=== PATIENT | female | born 1985 | race Caucasian/White ===

== ENCOUNTER 2023-01-24 12:11 | Inpatient (IN) | payer OTHER ==
[2023-01-24] MEDS ORDERED: SODIUM CHLORIDE 0.9% 500 ML 500 ML IV STA (12:58)
[2023-01-24] MEDS ORDERED: FAMOTIDINE 20 MG/2 ML VIAL IV STA (12:58)
--- NOTE | 2023-01-24 13:04 | ED ---
Abdominal Pain HPI - General Chief Complaint: Abdominal Pain Stated Complaint: Abd Pain Time Seen by Provider: 01/24/23 12:41 Source: patient, RN notes reviewed, old records reviewed Mode of arrival: ambulatory - History of Present Illness Initial Comments: This is a pleasant nontoxic appearing 37-year-old female that presents to the emergency room with complaints of epigastric abdominal pain and right upper quadrant since 9:30 this morning. Patient states that pain started on Thursday was lower abdominal felt gassy. Resolved on Thursday. Today she states that pain was epigastric in nature feeling like a squeezing vice-like pain. Worse after she tried to have coffee. Developed chills with nausea. Patient states that she is concerned for acute coronary event stating that her dad had a heart attack age 54. No previous abdominal surgeries. Denies any chance of pr egnancy. No dysuria MD Complaint: abdominal pain -: days(s) (5) Location: RUQ Severity scale (1-10): 3 Quality: fullness, other (squeezing "vice") Consistency: intermittent Associated Symptoms: nausea, chills Treatments Prior to Arrival: other (zofran fentanyl EMS) - Related Data Home Medications Medication Instructions Recorded Confirmed Loratadine [Claritin] 20 mg PO HS 01/24/23 01/24/23 Allergies Allergy/AdvReac Type Severity Reaction Status Date / Time amoxicillin Allergy Rash/Hives Verified 01/24/23 15:06 all over Review of Systems ROS Statement: Those systems with pertinent positive or pertinent negative responses have been documented in the HPI. ROS Other: All systems not noted in ROS Statement are negative. Past Medical History Past Medical History: No Reported History History of Any Multi-Drug Resistant Organisms: None Reported Past Surgical History: Section Past Psychological History: No Psychological Hx Reported Smoking Status: Never smoker Past Alcohol Use History: Rare Past Drug Use History: None Reported General Exam Limitations: no limitations General appearance: alert, in no apparent distress Head exam: Present: atraumatic, normocephalic, normal inspection Eye exam: Present: normal appearance. Absent: scleral icterus, conjunctival injection, periorbital swelling, periorbital tenderness ENT exam: Present: mucous membranes moist Neck exam: Present: normal inspection, full ROM. Absent: tenderness, meningismus, lymphadenopathy, thyromegaly Respiratory exam: Present: normal lung sounds bilaterally. Absent: respiratory distress, accessory muscle use Cardiovascular Exam: Present: regular rate GI/Abdominal exam: Present: soft, tenderness (epigastric). Absent: distended, guarding, rebound, rigid Extremities exam: Present: normal inspection, full ROM, normal capillary refill. Absent: tenderness, pedal edema, joint swelling, calf tenderness Back exam: Absent: tenderness Neurological exam: Present: alert, oriented X3 Psychiatric exam: Present: normal affect, normal mood Skin exam: Present: warm, dry, normal color. Absent: rash, cyanosis, diap horetic, petechiae, pallor Course Vital Signs 01/24/23 01/24/23 01/24/23 12:14 15:23 15:25 Temperature 98.1 F 97.7 F Pulse Rate 72 70 Respiratory 16 18 Rate Blood Pressure 115/78 113/76 O2 Sat by Pulse 97 98 Oximetry Medical Decision Making - Medical Decision Making Nontoxic-appearing patient presents with epigastric abdominal pain since 9:30. States did have some intermittent pain on Thursday after eating and drinking coffee. Denies any fevers. She is concerned that this may be a cardiac event states her dad had an MN at 54. She denies any chest pain or difficulty in breathing. EKG shows ventricular rate 73, PA interval 0.159, QRS 0.73, QTC 0.423, normal axis. No old to compare. Troponin negative at 0.012. Urinalysis shows evidence of urinary tract infection with positive leukocyte esterase, white blood cells and bacteria. Negative for . Leukocytosis of 12.2 with a left shift. Ultrasound shows cholelithiasis with reported positive sonographic Flowers sign, however no wall thickening or cholecystic fluid. Findings are cholecystitis. Recommended HIDA scan. I did speak with Dr. Thakur who agreeable to admission. Low-fat diet, antibi otics and pain medications. Patient is agreeable to admission. Case discussed with Dr. Nathan. Was pt. sent in by a medical professional or institution (, PA, [employer], urgent care, hospital, or senior care...) When possible be specific @ -No Did you speak to anyone other than the patient for history (EMS, parent, family, police, friend...)? What history was obtained from this source @ -No Did you review nursing and triage notes (agree or disagree)? Why? @ -I reviewed and agree with nursing and triage notes Were old charts reviewed (outside hosp., previous admission, EMS record, old EKG, old radiological studies, urgent care reports/EKG's, senior care records)? Report findings @ -No old charts were reviewed Differential Diagnosis (chest pain, altered mental status, abdominal pain women, abdominal pain men, vaginal bleeding, weakness, fever, dyspnea, syncope, headache, dizziness, GI bleed, back pain, seizure, CVA, palpatations, mental health, musculoskeletal)? @ -Differential Abdominal Pain Women: Appendicitis, Cholecystitis, diverticulosis, ischemic bowel, pancreatitis, hepatitis, UTI, gastroenteritis, AAA, incarcerated hernia, bowel obstruction, constipation, inflammatory bowel, hepatitis, peptic ulcer disease, splenic infarction, perforated viscus, vulvitis, ovarian torsion, PID, kidney stone, placenta abruption, this is not meant to be an all-inclusive list EKG interpreted by me (3pts min.). @ -As above X-rays interpreted by me (1pt min.). @ -None done CT interpreted by me (1pt min.). @ -None done U/S interpreted by me (1pt. min.). @ -None done What testing was considered but not performed or refused? (CT, X-rays, U/S, labs)? Why? @ -None What meds were considered but not given or refused? Why? @ -None Did you discuss the management of the patient with other professionals (professionals i.e. , PA, [employer], lab, RT, psych nurse, licensed social worker, head of it, teacher, chief environmental commitment officer, correctional counselor/case manager)? Give summary @ -Dr. Thakur recommended admission IV antibiotics and pain medications and low-fat diet Was smoking cessation discussed for >3mins.? @ -No Was critical care preformed (if so, how long)? @ -No Were there social determinants of health that impacted care today? How? (Homelessness, low income, unemployed, alcoholism, drug addiction, transportation, low edu. Level, literacy, decrease access to med. care, prison, rehab)? @ -No Was there de-escalation of care discussed even if they declined (Discuss DNR or withdrawal of care, Hospice)? DNR status @ -No What co-morbidities impacted this encounter? (DM, HTN, Smoking, COPD, CAD, Ca ncer, CVA, ARF, Chemo, Hep., AIDS, mental health diagnosis, sleep apnea, morbid obesity)? @ -None Was patient admitted / discharged? Hospital course, mention meds given and route, prescriptions, significant lab abnormalities, going to OR and other pertinent info. @ -Admitted Undiagnosed new problem with uncertain prognosis? @ -No Drug Therapy requiring intensive monitoring for toxicity (Heparin, Nitro, Insulin, Cardizem)? @ -No Were any procedures done? @ -No Diagnosis/symptom? @ -Cholecystitis, UTI Acute, or Chronic, or Acute on Chronic? @ -Acute Uncomplicated (without systemic symptoms) or Complicated (systemic symptoms)? @ -Uncomplicated Side effects of treatment? @ -No Exacerbation, Progression, or Severe Exacerbation? @ -No Poses a threat to life or bodily function? How? (Chest pain, USA, MN, pneumonia, PE, COPD, DKA, ARF, appy, cholecystitis, CVA, Diverticulitis, Homicidal, Suicidal, threat to staff... and all critical care pts) @ -No - Lab Data Result diagrams: 01/24/23 13:16 01/24/23 13:16 Lab Results 01/24/23 01/24/23 01/24/23 Range/Units 13:16 13:16 13:16 WBC 12.2 H (3.8-10.6) k/uL RBC 4.69 (3.80-5.40) m/uL Hgb 13.0 (11.4-16.0) gm/dL Hct 38.7 (34.0-46.0) % MCV 82.6 (80.0-100.0) fL MCH 27.8 (25.0-35.0) pg MCHC 33.6 (31.0-37.0) g/dL RDW 12.6 (11.5-15.5) % Plt Count 308 (150-450) k/uL MPV 7.9 Neutrophils % 82 % Lymphocytes % 12 % Monocytes % 4 % Eosinophils % 1 % Basophils % 0 % Neutrophils # 10.1 H (1.3-7.7) k/uL Lymphocytes # 1.5 (1.0-4.8) k/uL Monocytes # 0.4 (0-1.0) k/uL Eosinophils # 0.1 (0-0.7) k/uL Basophils # 0.0 (0-0.2) k/uL Sodium (137-145) mmol/L Potassium (3.5-5.1) mmol/L Chloride (98-107) mmol/L Carbon Dioxide (22-30) mmol/L Anion Gap mmol/L BUN (7-17) mg/dL Creatinine (0.52-1.04) mg/dL Est GFR (CKD-EPI)AfAm (>60 ml/min/1.73 sqM) Est GFR (CKD-EPI)NonAf (>60 ml/min/1.73 sqM) Glucose (74-99) mg/dL Plasma Lactic Acid Srinivas (0.7-2.0) mmol/L Calcium (8.4-10.2) mg/dL Total Bilirubin (0.2-1.3) mg/dL AST (14-36) U/L ALT (4-34) U/L Alkaline Phosphatase (38-126) U/L Troponin I (0.000-0.034) ng/mL Total Protein (6.3-8.2) g/dL Albumin (3.5-5.0) g/dL Amylase (30-110) U/L Lipase (23-300) U/L Urine Color Yellow Urine Appearance Cloudy H (Clear) Urine pH 8.5 H (5.0-8.0) Ur Specific Earth 1.021 (1.001-1.035) Urine Protein Trace H (Negative) Urine Glucose (UA) Negative (Negative) Urine Ketones Negative (Negative) Urine Blood Negative (Negative) Urine Nitrite Negative (Negative) Urine Bilirubin Negative (Negative) Urine Urobilinogen <2.0 (<2.0) mg/dL Ur Leukocyte Esterase Moderate H (Negative) Urine RBC 1 (0-5) /hpf Urine WBC 26 H (0-5) /hpf Ur Squamous Epith Cells 12 H (0-4) /hpf Urine Bacteria Rare H (None) /hpf Hyaline Casts 3 H (0-2) /lpf Urine Mucus Rare H (None) /hpf Urine HCG, Qual Not Detected (Not Detectd) 01/24/23 01/24/23 01/24/23 Range/Units 13:16 13:16 13:16 WBC (3.8-10.6) k/uL RBC (3.80-5.40) m/uL Hgb (11.4-16.0) gm/dL Hct (34.0-46.0) % MCV (80.0-100.0) fL MCH (25.0-35.0) pg MCHC (31.0-37.0) g/dL RDW (11.5-15.5) % Plt Count (150-450) k/uL MPV Neutrophils % % Lymphocytes % % Monocytes % % Eosinophils % % Basophils % % Neutrophils # (1.3-7.7) k/uL Lymphocytes # (1.0-4.8) k/uL Monocytes # (0-1.0) k/uL Eosinophils # (0-0.7) k/uL Basophils # (0-0.2) k/uL Sodium 136 L (137-145) mmol/L Potassium 4.6 (3.5-5.1) mmol/L Chloride 105 (98-107) mmol/L Carbon Dioxide 24 (22-30) mmol/L Anion Gap 7 mmol/L BUN 16 (7-17) mg/dL Creatinine 0.68 (0.52-1.04) mg/dL Est GFR (CKD-EPI)AfAm >90 (>60 ml/min/1.73 sqM) Est GFR (CKD-EPI)NonAf >90 (>60 ml/min/1.73 sqM) Glucose 98 (74-99) mg/dL Plasma Lactic Acid Srinivas 0.7 (0.7-2.0) mmol/L Calcium 9.1 (8.4-10.2) mg/dL Total Bilirubin 1.8 H (0.2-1.3) mg/dL AST 34 (14-36) U/L ALT 28 (4-34) U/L Alkaline Phosphatase 65 (38-126) U/L Troponin I <0.012 (0.000-0.034) ng/mL Total Protein 7.1 (6.3-8.2) g/dL Albumin 4.0 (3.5-5.0) g/dL Amylase 42 (30-110) U/L Lipase 40 (23-300) U/L Urine Color Urine Appearance (Clear) Urine pH (5.0-8.0) Ur Specific Earth (1.001-1.035) Urine Protein (Negative) Urine Glucose (UA) (Negative) Urine Ketones (Negative) Urine Blood (Negative) Urine Nitrite (Negative) Urine Bilirubin (Negative) Urine Urobilinogen (<2.0) mg/dL Ur Leukocyte Esterase (Negative) Urine RBC (0-5) /hpf Urine WBC (0-5) /hpf Ur Squamous Epith Cells (0-4) /hpf Urine Bacteria (None) /hpf Hyaline Casts (0-2) /lpf Urine Mucus (None) /hpf Urine HCG, Qual (Not Detectd) - EKG Data EKG shows normal: sinus rhythm (EKG shows ventricular rate 73, PA interval 0.159, QRS 0.73, QTC 0.423, normal axis) Disposition Clinical Impression: Cholecystitis, UTI (urinary tract infection) Disposition: ADMITTED IP TO THIS [facility] Decision Date: 01/24/23 Decision Time: 14:44
[2023-01-24 13:49] LABS: Basophils % (A) 0 %; Eosinophils # (A) 0.1 k/uL (0-0.7); Eosinophils % (A) 1 %; HCT 38.7 % (34.0-46.0); Lymphocytes # (A) 1.5 k/uL (1.0-4.8); Lymphocytes % (A) 12 %; MCH 27.8 pg (25.0-35.0); MCHC 33.6 g/dL (31.0-37.0); MCV 82.6 fL (80.0-100.0); Mean Platelet Volume 7.9; Monocytes # (A) 0.4 k/uL (0-1.0); Monocytes % (A) 4 %; Neutrophils # (A) 10.1 k/uL (1.3-7.7); Neutrophils % (A) 82 %; Platelet Count 308 k/uL (150-450); RBC 4.69 m/uL (3.80-5.40); RDW 12.6 % (11.5-15.5); WBC 12.2 k/uL (3.8-10.6)
[2023-01-24 13:53] LABS: Appearance,Urine Cloudy (Clear); Bacteria,Urine Rare /hpf; Bilirubin,Urine Negative (Negative); Blood,Urine Negative (Negative); Color,Urine Yellow; Glucose,Urine (UA) Negative (Negative); Hyaline Casts,Urine 3 /lpf (0-2); Ketones,Urine Negative (Negative); Leukocyte Esterase,Urine Moderate (Negative); Mucus,Urine Rare /hpf; Nitrite,Urine Negative (Negative); PH, Urine 8.5 (5.0-8.0); Protein,Urine Trace (Negative); RBC,Urine 1 /hpf (0-5); Specific Gravity,Urine 1.021 (1.001-1.035); Squamous Epithelial Cell,Urine 12 /hpf (0-4); Urobilinogen,Urine <2.0 mg/dL (<2.0); WBC,Urine 26 /hpf (0-5)
--- NOTE | 2023-01-24 14:00 | US ---
EXAMINATION TYPE: US gallbladder DATE OF EXAM: 01/24/2023 COMPARISON: NONE CLINICAL INDICATION: Female, 37 years old with history of ruq pain; Pain TECHNIQUE: Multiple sonographic images of the right upper quadrant are obtained. FINDINGS: EXAM MEASUREMENTS: Liver Length: 18.2 cm Gallbladder Wall: 0.2 cm CBD: 0.5 cm Right Kidney: 11.4 x 4.8 x 5.6 cm OVERLOCK HEMMER NOTES: Pancreas: wnl Liver: Enlarged Gallbladder: Multiple, mobile gallstones, wall not thickened Evidence for sonographic Flowers's sign: Yes CBD: wnl Right Kidney: wnl Increases within normal limits. Hepatomegaly demonstrated. No focal lesion. Multiple gallstones ident ified. No gallbladder wall thickening or pericholecystic fluid. Per furniture painter, positive sonographic Flowers's sign. Common bile duct within normal limits. Right kidney is unremarkable without evidence of hydronephrosis, solid mass, or nephrolithiasis. IMPRESSION: Cholelithiasis with reported positive sonographic Flowers's sign however there is no wall thickening o r pericholecystic fluid. Findings are equivocal for acute cholecystitis. Clinical correlation is boni mmended with consideration for nuclear medicine HIDA scan.
[2023-01-24 14:01] LABS: ALT 28 U/L (4-34); African American GFR (CKD) >90 (>60 ml/min/1.73 sqM); Amylase 42 U/L (30-110); Anion Gap 7 mmol/L; Blood Urea Nitrogen 16 mg/dL (7-17); Calcium 9.1 mg/dL (8.4-10.2); Carbon Dioxide 24 mmol/L (22-30); Chloride 105 mmol/L (98-107); Glucose 98 mg/dL (74-99); Lipase 40 U/L (23-300); Non-African American GFR(CKD) >90 (>60 ml/min/1.73 sqM); Sodium 136 mmol/L (137-145); Total Bilirubin 1.8 mg/dL (0.2-1.3); Total Protein 7.1 g/dL (6.3-8.2)
[2023-01-24 14:13] LABS: AST 34 U/L (14-36); Alkaline Phosphatase 65 U/L (38-126); Potassium 4.6 mmol/L (3.5-5.1)
[2023-01-24] MEDS ORDERED: KETOROLAC 15 MG/ML 1 ML VIAL IVP STA (14:19)
[2023-01-24] MEDS ORDERED: NALOXONE 0.4 MG/ML 1 ML VIAL IV PRN (14:40)
[2023-01-24] MEDS ORDERED: KETOROLAC 15 MG/ML 1 ML VIAL IVP PRN (14:40)
[2023-01-24] MEDS: ONDANSETRON 4 MG/2 ML VIAL IVP PRN (15:27)
[2023-01-24] MEDS: PIPERACILLIN-TAZOBACTAM 3.375 GM in SODIUM CHLORIDE 0.9% 100 ML IVPB SCH (15:27)
[2023-01-24] MEDS ORDERED: HYDROmorphone 1 MG/ML 1 ML SYRINGE IVP PRN (20:48)
[2023-01-24] MEDS: LORATADINE 10 MG TAB PO SCH (21:16)
[2023-01-24] MEDS: PANTOPRAZOLE 40 MG/10 ML VIAL IVP SCH (21:16)
[2023-01-24] MEDS: KETOROLAC 15 MG/ML 1 ML VIAL IVP SCH (21:17)
[2023-01-24] MEDS: ACETAMINOPHEN IV (For NPO) 1,000 MG in EMPTY BAG 1 BAG IVPB SCH (21:28)
[2023-01-25] MEDS: PIPERACILLIN-TAZOBACTAM 3.375 GM in SODIUM CHLORIDE 0.9% 100 ML IVPB SCH ×3 (00:43→16:46)
[2023-01-25] MEDS: ACETAMINOPHEN IV (For NPO) 1,000 MG in EMPTY BAG 1 BAG IVPB SCH ×4 (02:26→14:24)
[2023-01-25] MEDS: KETOROLAC 15 MG/ML 1 ML VIAL IVP SCH ×5 (02:28→20:12)
[2023-01-25] MEDS: PANTOPRAZOLE 40 MG/10 ML VIAL IVP SCH ×2 (07:50→20:13)
[2023-01-25 08:47] LABS: Basophils % (A) 0 %; Eosinophils # (A) 0.1 k/uL (0-0.7); Eosinophils % (A) 2 %; HCT 38.3 % (34.0-46.0); HGB 12.6 gm/dL (11.4-16.0); Lymphocytes # (A) 1.5 k/uL (1.0-4.8); Lymphocytes % (A) 21 %; MCH 27.7 pg (25.0-35.0); MCV 84.1 fL (80.0-100.0); Mean Platelet Volume 8.3; Monocytes # (A) 0.4 k/uL (0-1.0); Monocytes % (A) 6 %; Neutrophils # (A) 4.8 k/uL (1.3-7.7); Neutrophils % (A) 70 %; Platelet Count 280 k/uL (150-450); RBC 4.55 m/uL (3.80-5.40); RDW 12.7 % (11.5-15.5); WBC 6.9 k/uL (3.8-10.6)
[2023-01-25 08:55] LABS: ALT 153 U/L (4-34); AST 195 U/L (14-36); African American GFR (CKD) 84 (>60 ml/min/1.73 sqM); Albumin 3.5 g/dL (3.5-5.0); Albumin/Globulin Ratio 1.3; Alkaline Phosphatase 91 U/L (38-126); Anion Gap 6 mmol/L; Blood Urea Nitrogen 14 mg/dL (7-17); Calcium 8.7 mg/dL (8.4-10.2); Carbon Dioxide 28 mmol/L (22-30); Chloride 106 mmol/L (98-107); Globulin 2.7 g/dL; Glucose 95 mg/dL (74-99); Non-African American GFR(CKD) 73 (>60 ml/min/1.73 sqM); Potassium 4.3 mmol/L (3.5-5.1); Sodium 140 mmol/L (137-145); Total Bilirubin 2.8 mg/dL (0.2-1.3); Total Protein 6.2 g/dL (6.3-8.2)
[2023-01-25] MEDS: ONDANSETRON 4 MG/2 ML VIAL IVP PRN (11:33)
[2023-01-25] MEDS ORDERED: MORPHINE SULFATE 4 MG/ML SYRINGE IVP PRN (15:16)
[2023-01-25] MEDS: SCOPOLAMINE 1 MG/72 HR PATCH TRANSDERM SCH (16:46)
[2023-01-25] MEDS: LORATADINE 10 MG TAB PO SCH (20:13)
--- NOTE | 2023-01-25 23:08 | P.GSHP ---
History of Present Illness H&P Date: 01/25/23 CHIEF COMPLAINT: Acute cholecystitis HISTORY OF PRESENT ILLNESS: The patient is a 37 year old female who presents with epigastric right upper quadrant abdominal pain for over 1-2 days. This morning, patient reports moderate severe epigastric pain. No fevers or chills. She reports acute nausea. She reports worsening symptoms with Dilaudid. Due to her persistent abdominal pain, patient's admitted for acute cholecystitis. PAST MEDICAL HISTORY: See list and reviewed PAST SURGICAL HISTORY: See list and reviewed MEDICATIONS: See list and reviewed ALLERGIES: See list and reviewed SOCIAL HISTORY: See list and reviewed FAMILY HISTORY: See list and reviewed REVIEW OF ORGAN SYSTEMS: CONSTITUTIONAL: No fevers or chills. No recent weight loss. Has obesity, BMI 33.1 EYES: Denies any trouble with vision. No glasses. HEENT: No difficulties with hearing. No nosebleeds. No difficulty swallowing. RESPIRATORY: Denies pneumonia. Denies any troubles with breathing or dyspnea on exertion. CARDIOVASCULAR: Denies any chest pain, palpitations, or recent heart attacks. GASTROINTESTINAL: No blood in stools. GENITOURINARY: Denies any blood in urine or increased urinary frequency. NEUROLOGICAL: Denies any numbness or tingling along the distal extremities. No seizure disorders or headaches. MUSCULOSKELETAL: Denies any back pain, stiffness or joint arthritis. SKIN: No current skin cancer. No rash. PSYCHIATRIC: Denies current depression or suicidal thoughts. ENDOCRINE: Denies current thyroid disorders. Denies any blood sugar glucose intolerance. HEME/LYMPHATIC: Denies any lumps and bumps around the neck. No recent deep venous thrombosis. ALLERGY/IMMUNOLOGY: No immunoglobulin therapy. No immune deficiencies. BREAST: Denies current breast lumps, pain or nipple discharge. PHYSICAL EXAM: VITALS: Reviewed CONSTITUTIONAL: Well developed and in no acute distress. EYES: Conjuctivae without sclera icterus. Extraocular movements grossly intact. HEAD, EARS, NOSE, THROAT: Moist buccal mucosa. Head is atraumatic, normocephalic. Hears conversational speech. No nasal drainage. NECK: Supple. No JV distention. No thyroidomegaly. RESPIRATORY: Non-labored respirations and equal bilateral excursions. No gross wheezes. CARDIOVASCULAR: Palpable 2+ radial pulses. ABDOMEN: Tender epigastrium, right upper quadrant. LYMPH: No neck lymphadenopathy. MUSCULOSKELETAL: No clubbing cyanosis or edema. SKIN: Warm and well perfused with good skin turgor. NEUROLOGIC: Cranial nerves II through XII grossly intact. No focal or lateralizing signs. PSYCH: Appropriate affect. Alert and oriented to person, place and time. Displays appropriate insight. CLINCAL LABS: Reviewed. WBC count 12.2-6.9. Total bilirubin elevated 1.8-2.8. LFTs elevated. IMAGING: Independently reviewed. Ultrasound of the gallbladder view demonstrates moderate gallstones. This is my independent interpretation. RADIOLOGY: Report reviewed. Ultrasound gallbladder demonstrates multiple ga llstones with common bile duct within normal limits. Positive Flowers sign. ASSESSMENT: 1. Acute cholecystitis due to cystic duct obstruction 2. Elevated LFTs of choledocholithiasis 3. Obesity due to excess calories, BMI 33.1 PLAN: 1. IV fluid hydration. 2. Nonnarcotic pain management with scheduled Tylenol and Toradol 3. IV antibiotics 4. Consultation to gastroenterology for choledocholithiasis possible ERCP 5. Recommend inpatient hospitalization anticipated over 3-5 days Past Medical History Past Medical History: No Reported History History of Any Multi-Drug Resistant Organisms: None Reported Past Surgical History: Section Past Anesthesia/Blood Transfusion Reactions: No Reported Reaction Past Psychological History: No Psychological Hx Reported Smoking Status: Never smoker Past Alcohol Use History: Rare Past Drug Use History: None Reported Medications and Allergies Home Medications Medication Instructions Recorded Confirmed Type Loratadine [Claritin] 20 mg PO HS 01/24/23 01/24/23 History Allergies Allergy/AdvReac Type Severity Reaction Status Date / Time amoxicillin Allergy Rash/Hives Verified 01/24/23 15:06 all over Surgical - Exam Vital Signs Temp Pulse Resp BP Pulse Ox 98.1 F 72 16 115/78 97 01/24/23 12:14 01/24/23 12:14 01/24/23 12:14 01/24/23 12:14 01/24/23 12:14 Results - Labs 01/25/23 06:13 01/25/23 06:13 Abnormal Lab Results - Last 24 Hours (Table) 01/25/23 Range/Units 06:13 Total Bilirubin 2.8 H (0.2-1.3) mg/dL AST 195 H (14-36) U/L ALT 153 H (4-34) U/L Total Protein 6.2 L (6.3-8.2) g/dL Microbiology - Last 24 Hours (Table) 01/24/23 15:15 Blood Culture - Preliminary Blood No Growth after 24 hours 01/24/23 15:00 Blood Culture - Preliminary Blood No Growth after 24 hours Diabetes panel 01/25/23 Range/Units 06:13 Sodium 140 (137-145) mmol/L Potassium 4.3 (3.5-5.1) mmol/L Chloride 106 (98-107) mmol/L Carbon Dioxide 28 (22-30) mmol/L BUN 14 (7-17) mg/dL Creatinine 0.99 (0.52-1.04) mg/dL Glucose 95 (74-99) mg/dL Calcium 8.7 (8.4-10.2) mg/dL AST 195 H (14-36) U/L ALT 153 H (4-34) U/L Alkaline Phosphatase 91 (38-126) U/L Total Protein 6.2 L (6.3-8.2) g/dL Albumin 3.5 (3.5-5.0) g/dL Calcium panel 01/25/23 Range/Units 06:13 Calcium 8.7 (8.4-10.2) mg/dL Albumin 3.5 (3.5-5.0) g/dL Pituitary panel 01/25/23 Range/Units 06:13 Sodium 140 (137-145) mmol/L Potassium 4.3 (3.5-5.1) mmol/L Chloride 106 (98-107) mmol/L Carbon Dioxide 28 (22-30) mmol/L BUN 14 (7-17) mg/dL Creatinine 0.99 (0.52-1.04) mg/dL Glucose 95 (74-99) mg/dL Calcium 8.7 (8.4-10.2) mg/dL Adrenal panel 01/25/23 Range/Units 06:13 Sodium 140 (137-145) mmol/L Potassium 4.3 (3.5-5.1) mmol/L Chloride 106 (98-107) mmol/L Carbon Dioxide 28 (22-30) mmol/L BUN 14 (7-17) mg/dL Creatinine 0.99 (0.52-1.04) mg/dL Glucose 95 (74-99) mg/dL Calcium 8.7 (8.4-10.2) mg/dL Total Bilirubin 2.8 H (0.2-1.3) mg/dL AST 195 H (14-36) U/L ALT 153 H (4-34) U/L Alkaline Phosphatase 91 (38-126) U/L Total Protein 6.2 L (6.3-8.2) g/dL Albumin 3.5 (3.5-5.0) g/dL
[2023-01-26] MEDS: PIPERACILLIN-TAZOBACTAM 3.375 GM in SODIUM CHLORIDE 0.9% 100 ML IVPB SCH ×3 (01:21→15:22)
[2023-01-26] MEDS: KETOROLAC 15 MG/ML 1 ML VIAL IVP SCH ×4 (01:22→20:09)
[2023-01-26] MEDS: PANTOPRAZOLE 40 MG/10 ML VIAL IVP SCH ×2 (08:44→20:09)
[2023-01-26] MEDS: SODIUM CHLORIDE 0.9% 1,000 ML IV SCH (08:45)
[2023-01-26 08:57] LABS: Basophils # (A) 0.04 X 10*3/uL (0.00-0.10); Basophils % (A) 0.5 %; Eosinophils # (A) 0.21 X 10*3/uL (0.04-0.35); Eosinophils % (A) 2.5 %; HCT 38.7 % (37.2-46.3); HGB 12.3 g/dL (12.0-15.0); Immature Grans, Automated 0.2 %; Lymphocytes # (A) 1.97 X 10*3/uL (0.90-5.00); Lymphocytes % (A) 23.9 %; MCHC 31.8 g/dL (32.0-37.0); Mean Platelet Volume 11.3 fL (9.5-12.2); Monocytes # (A) 0.64 X 10*3/uL (0.20-1.00); Monocytes % (A) 7.8 %; NRBC Per 100 WBC 0 /100 WBCS (0.0-0.0); Neutrophils # (A) 5.36 X 10*3/uL (1.80-7.70); Neutrophils % (A) 65.1 %; Platelet Count 269 X 10*3/uL (140-440); RDW 13.2 % (11.5-14.5); WBC 8.24 X 10*3/uL (4.50-10.00)
[2023-01-26 09:28] LABS: African American GFR (CKD) 83.3 (60.0-200.0); Albumin 3.7 g/dL (3.8-4.9); Albumin/Globulin Ratio 1.85 (1.60-3.17); BUN/Creat Ratio 10.2 Ratio (12.00-20.00); Blood Urea Nitrogen 10.2 mg/dL (9.0-27.0); Non-African American GFR(CKD) 71.9 (60.0-200.0); Potassium 4.7 mmol/L (3.5-5.5); Total Bilirubin 3.6 mg/dL (0.30-1.20); Total Protein 5.7 g/dL (6.2-8.2)
[2023-01-26 10:12] LABS: Prothrombin Time 10.5 sec (9.0-12.0)
--- NOTE | 2023-01-26 11:46 | P.CONS ---
History of Present Illness - Reason for Consult Consult date: 01/26/23 ERCP for choledocholithiasis Requesting physician: Lupe Thakur - Chief Complaint Epigastric pain - History of Present Illness This is a pleasant 37-year-old female who presented to the emergency department Thursday with complaints of severe epigastric pain associated with nausea. Patient states pain actually started on Thursday however the pain ended up going away and she was able to sleep. She states she was fine Thursday however Thursday morning she woke up and had some coffee the patient came back. No previous history of gallbladder disease. No significant medical history. She denies any anticoagulation. Denies any history of peptic ulcer disease and no previous EGD. Patient denied any fevers, chills, or body aches at home. Admitting labs with leukocytosis and mild elevation in total bilirubin at 1.8. Otherwise unremarkable. She had a gallbladder ultrasound showing cholelithiasis multiple mobile gallstones no wall thickening or Cholecystic fluid. Patient was initially seen by general surgery, Dr. Trevino had patient tentatively scheduled for cholecystectomy today however gastroenterology was consulted for possible choledocholithiasis, requesting ERCP. Patient currently denies any abdominal pain, nausea or vomiting. She has been afebrile. She is currently nothing by mouth, states that she does get a little discomfort eating or drinking. And he has a upper trend of LFTs. Today's labs WBC 8.2 hemoglobin 12 platelet count 269,000 pain or 1.0 total bilirubin 3.6 AST 133 ALT 209 alkaline phosphatase 119 Review of Systems REVIEW OF SYSTEMS: CARDIOPULMONARY: No chest pain or shortness of breath. Gastrointestinal: Patient had epigastric pain, now improved. No nausea or vomiting. No hematemesis, coffee-ground emesis. No rectal bleeding, or melena. GENITOURINARY: No dysuria or hematuria. MUSCULOSKELETAL: Reports normal range of motion. SKIN: No rashes. No jaundice. ENDOCRINE: No chills, fevers. No excessive weight gain or loss. No polydipsia or polyuria. PSYCHIATRIC: Unremarkable. NEUROLOGY: No change in mental status. Denies dizziness, headache. ENT: Vision unremarkable. CONSTITUTIONAL: No recent weight loss. No fever, chills, night sweats. Past Medical History Past Medical History: No Reported History History of Any Multi-Drug Resistant Organisms: None Reported Past Surgical History: Section Past Anesthesia/Blood Transfusion Reactions: No Reported Reaction Past Psychological History: No Psychological Hx Reported Smoking Status: Never smoker Past Alcohol Use History: Rare Past Drug Use History: None Reported Medications and Allergies Home Medications Medication Instructions Recorded Confirmed Type Loratadine [Claritin] 20 mg PO HS 01/24/23 01/24/23 History Allergies Allergy/AdvReac Type Severity Reaction Status Date / Time amoxicillin Allergy Rash/Hives Verified 01/24/23 15:06 all over Physical Exam Vitals: Vital Signs Temp Pulse Pulse Resp BP Pulse Ox 01/26/23 07:00 97.9 F 73 15 113/73 98 01/26/23 02:00 98.1 F 83 14 102/67 97 01/25/23 19:33 97.7 F 64 16 91/63 99 01/25/23 14:47 98.2 F 74 18 97/66 98 Intake and Output 01/25/23 01/26/23 01/26/23 22:59 06:59 14:59 Intake Total 240 Balance 240 Intake: Oral 240 Other: # Voids 2 0 General appearance: The patient is alert, oriented, appears in no acute distress. HET: Head is normocephalic and atraumatic. Conjunctiva pink. Sclera anicteric. Neck: Supple without lymphadenopathy. Trachea midline. Heart: S1 S2. Regular rate and rhythm. Lungs: Clear to auscultation. Abdomen: Soft, epigastric and right upper quadrant tenderness to palpation, nondistended with bowel sounds. No guarding or rigidity. Skin: No rashes. Minimal jaundice. Extremities: Normal skin color and turgor. No pedal edema. Neurological: No focal deficits. Alert and oriented x3. Results CBC & Chem 7: 01/26/23 02:41 01/26/23 02:41 Labs: Abnormal Lab Results - Last 24 Hours (Table) 01/25/23 Range/Units 06:13 Total Bilirubin 2.8 H (0.2-1.3) mg/dL AST 195 H (14-36) U/L ALT 153 H (4-34) U/L Total Protein 6.2 L (6.3-8.2) g/dL Microbiology - Last 24 Hours (Table) 01/24/23 15:15 Blood Culture - Preliminary Blood No Growth after 24 hours 01/24/23 15:00 Blood Culture - Preliminary Blood No Growth after 24 hours Assessment and Plan (1) Choledocholithiasis Narrative/Plan: The 37-year-old female who presented with acute epigastric pain noted to have cholelithiasis on gallbladder ultrasound, with trending elevation in total bilirubin and LFTs. Patient tentatively scheduled today to undergo cholecystectomy with Gen. surgery however gastroenterology consulted for possible choledocholithiasis. Patient's LFTs are trending up in with cholestatic pattern with clinical suspicion choledocholithiasis. Patient scheduled for ERCP tomorrow. Procedure discussed with patient in detail. Continue antibiotics. Current Visit: Yes Status: Acute Code(s): K80.50 - CALCULUS OF BILE DUCT W/O CHOLANGITIS OR CHOLECYST W/O OBST SNOMED Code(s): 229928984 (2) Cholecystitis Current Visit: Yes Status: Acute Code(s): K81.9 - CHOLECYSTITIS, UNSPECIFIED SNOMED Code(s): 85971517 Plan: 1. Continue symptomatic supportive care 2. Pain medication as ordered 3. IV fluids ordered as patient is nothing by mouth 4. Daily CBC, CMP 5. Keep patient nothing by mouth 6. Patient tentatively scheduled for cholecystectomy today with general surgery, and has been rescheduled to , 01/29/2023 7. ERCP scheduled for tomorrow 8. Indomethacin ordered to give one hour prior to ERCP 9. Continue antibiotics Thank you for this consultation, we will continue to follow. Dr. Raven Hewitt I agree with the dictator's note, documented as a scribe by Kellen Kennedy.
--- NOTE | 2023-01-26 12:20 | P.PN ---
Subjective Progress Note Date: 01/26/23 CHIEF COMPLAINT: Acute cholecystitis HISTORY OF PRESENT ILLNESS: Patient continues to have right upper quadrant abdominal pain. She reports the pain is about the same as yesterday. She denies any nausea or vomiting. Pain is worse with eating. Patient's total bilirubin and LFTs are trending upwards. She is scheduled for ERCP tomorrow. Afebrile. Total bili 3.60 AST 133 ALT 209 PHYSICAL EXAM: VITAL SIGNS: Reviewed GENERAL: Well-developed in no acute distress. HEENT: No sclera icterus. Extraocular movements grossly intact. Moist buccal mucosa. Head is atraumatic, normocephalic. Hears conversational speech. No nasal drainage. NECK: Supple without lymphadenopathy. CHEST: Non-labored respirations and equal bilateral excursions. CARDIOVASCULAR: Palpable 2+ radial pulses. ABDOMEN: Soft. Nondistended. Right upper quadrant tenderness MUSCULOSKELETAL: No clubbing or cyanosis. NEUROLOGIC: No focal or lateralizing signs. Cranial nerves II through XII grossly intact. PSYCH: Appropriate affect. Alert and oriented to person, place and time. SKIN: Well perfused. Good skin turgor. ASSESSMENT: 1. Acute cholecystitis 2. Possible choledocholithiasis with elevated total bilirubin and liver enzymes PLAN: -Patient scheduled for ERCP tomorrow with GI service -Okay for clear liquid diet today -Patient tentatively scheduled for Robotic Cholecystectomy on with Dr. Thakur -Continue supportive care -Continue pain management -Continue IV antibiotics Physician Clerk Rating note has been reviewed by physician. Signing provider agrees with the documented findings, assessment, and plan of care. CHIEF COMPLAINT: Acute cholecystitis HISTORY OF PRESENT ILLNESS: The patient is a 37 year old female who presents with epigastric right upper quadrant abdominal pain for over 1-2 days. This morning, patient reports moderate severe epigastric pain. No fevers or chills. She reports acute nausea. She reports worsening symptoms with Dilaudid. Due to her persistent abdominal pain, patient's admitted for acute cholecystitis. REVIEW OF ORGAN SYSTEMS: CONSTITUTIONAL: No fevers or chills. No recent weight loss. Has obesity, BMI 33.1 GASTROINTESTINAL: No blood in stools. HEME/LYMPHATIC: Denies any lumps and bumps around the neck. No recent deep venous thrombosis. PHYSICAL EXAM: VITALS: Reviewed CONSTITUTIONAL: Well developed and in no acute distress. EYES: Conjuctivae without sclera icterus. Extraocular movements grossly intact. HEAD, EARS, NOSE, THROAT: Moist buccal mucosa. Head is atraumatic, normocephalic. Hears conversational speech. No nasal drainage. RESPIRATORY: Non-labored respirations and equal bilateral excursions. No gross wheezes. CARDIOVASCULAR: Palpable 2+ radial pulses. ABDOMEN: Tender epigastrium, right upper quadrant. MUSCULOSKELETAL: No clubbing cyanosis or edema. SKIN: Warm and well perfused with good skin turgor. NEUROLOGIC: Cranial nerves II through XII grossly intact. No focal or lateralizing signs. PSYCH: Appropriate affect. Alert and oriented to person, place and time. Displays appropriate insight. CLINCAL LABS: Reviewed. WBC normal. Total bilirubin elevated 1.8-2.8, elevated now 3.6. LFTs elevated. ASSESSMENT: 1. Acute cholecystitis due to cystic duct obstruction 2. Elevated LFTs due to choledocholithiasis 3. Obesity due to excess calories, BMI 33.1 PLAN: 1. Recommend urgent ERCP due to acute choledocholithiasis with cholecystitis 2. Recommend continued IV antibiotic 3. Inpatient hospitalization due to choledocholithiasis with acute cholecystitis 4. Cholecystectomy while inpatient advised 5. Low-fat liquid diet in the interim Care plan discussed with family and patient and all questions addressed Objective - Vital Signs Vital signs: Vital Signs Temp 97.9 F 01/26/23 07:00 Pulse 73 01/26/23 07:00 Resp 15 01/26/23 07:00 BP 113/73 01/26/23 07:00 Pulse Ox 98 01/26/23 07:00 FiO2 Intake & Output 01/25/23 01/26/23 01/26/23 18:59 06:59 18:59 Intake Total 680 Balance 680 Intake: Oral 680 Other: # Voids 1 0 - Labs CBC & Chem 7: 01/26/23 02:41 01/26/23 02:41 Labs: Abnormal Lab Results - Last 24 Hours (Table) 01/26/23 01/26/23 Range/Units 02:41 02:41 MCHC 31.8 L (32.0-37.0) g/dL Anion Gap 7.00 L (10.00-18.00) mmol/L BUN/Creatinine Ratio 10.20 L (12.00-20.00) Ratio Total Bilirubin 3.60 H (0.30-1.20) mg/dL AST 133 H (13-35) U/L ALT 209 H (8-44) U/L Total Protein 5.7 L (6.2-8.2) g/dL Albumin 3.7 L (3.8-4.9) g/dL Microbiology - Last 24 Hours (Table) 01/24/23 15:15 Blood Culture - Preliminary Blood No Growth after 24 hours 01/24/23 15:00 Blood Culture - Preliminary Blood No Growth after 24 hours
[2023-01-26] MEDS: LORATADINE 10 MG TAB PO SCH (20:09)
[2023-01-27] MEDS: PIPERACILLIN-TAZOBACTAM 3.375 GM in SODIUM CHLORIDE 0.9% 100 ML IVPB SCH ×3 (01:29→17:40)
[2023-01-27] MEDS: KETOROLAC 15 MG/ML 1 ML VIAL IVP SCH ×4 (01:29→19:49)
[2023-01-27] MEDS: SODIUM CHLORIDE 0.9% 1,000 ML IV SCH ×2 (01:30→08:42)
[2023-01-27 06:59] LABS: ALT 146 U/L (4-34); AST 52 U/L (14-36); African American GFR (CKD) >90 (>60 ml/min/1.73 sqM); Albumin 3.1 g/dL (3.5-5.0); Albumin/Globulin Ratio 1.2; Alkaline Phosphatase 100 U/L (38-126); Anion Gap 5 mmol/L; Blood Urea Nitrogen 11 mg/dL (7-17); Calcium 8.3 mg/dL (8.4-10.2); Carbon Dioxide 25 mmol/L (22-30); Chloride 110 mmol/L (98-107); Globulin 2.6 g/dL; Glucose 80 mg/dL (74-99); Non-African American GFR(CKD) 79 (>60 ml/min/1.73 sqM); Potassium 4.1 mmol/L (3.5-5.1); Sodium 140 mmol/L (137-145); Total Bilirubin 1.9 mg/dL (0.2-1.3); Total Protein 5.7 g/dL (6.3-8.2)
[2023-01-27] MEDS: PANTOPRAZOLE 40 MG/10 ML VIAL IVP SCH ×2 (08:43→19:49)
[2023-01-27] MEDS ORDERED: INDOMETHACIN 100 MG SUPPOSITORY RECTAL ONE (11:00)
[2023-01-27] MEDS ORDERED: INDOMETHACIN 50MG SUPPOSITORY RECTAL ONE (11:00)
[2023-01-27] MEDS ORDERED: fentaNYL (PF) 50 MCG/ML 2 ML AMP ONE (12:42)
[2023-01-27] MEDS ORDERED: DEXAMETHASONE SOD PHOSPHATE 4 MG/ML 1 ML VIAL ONE (12:42)
[2023-01-27] MEDS ORDERED: PROPOFOL 10 MG/ML 20 ML VIAL IV ONE (12:42)
[2023-01-27] MEDS ORDERED: ONDANSETRON 4 MG/2 ML VIAL ONE (12:42)
[2023-01-27] MEDS ORDERED: LIDOCAINE 2% INJ 20 MG/ML (2 ML VIAL) ONE (12:42)
[2023-01-27] MEDS ORDERED: SUCCINYLCHOLINE CHLORIDE 200 MG/10 ML VIAL IV ONE (12:42)
[2023-01-27] MEDS ORDERED: IOPAMIDOL-300 50ML BTL INJ ONE ×2 (12:45→12:57)
[2023-01-27] MEDS ORDERED: SODIUM CHLORIDE 0.9% 500 ML 500 ML IV ONE (12:46)
[2023-01-27] MEDS ORDERED: EPINEPHrine 10 ML SYRINGE (0.1 MG/ML) IM ONE (13:15)
--- NOTE | 2023-01-27 13:39 | P.PCN ---
Date of Procedure: 01/27/23 Procedure(s) Performed: Brief history: Patient is a 37 year-old pleasant lady scheduled for an ERCP as part of evaluation of abdominal pain and elevated serum transaminases for the last 2 days' duration. She was noted to have elevated bilirubin up to 3.5 and elevated serum transaminases. Ultrasound did show evidence of gallstones. Because of clinical suspicion for CBD stones he scheduled for an ERCP today. Procedure performed: ERCP with biliary sphincterotomy, balloon stone extraction, injection epinephrine and Endo Clip placement Preoperative diagnoses: Epigastric pain and elevated LFTs and jaundice IV sedation per anesthesia: Procedure: After informed consent was obtained from the patient and after the risks benefits and complications including bleeding perforation and pancreatitis explained in detail the patient was brought into the endoscopy unit. The patient was placed in prone position and IV conscious sedation was administered by anesthesia under continuous monitoring. The Olympus side-viewing duodenoscope was then inserted into the mouth and esophagus intubated without any difficulty. The scope was gradually advanced into the stomach and duodenum. The major papilla was identified without any difficulty. Initial cannulation resulted be sufficient the common bile duct and upon injection of the dye the common bile duct appeared slightly dilated to 7 mm with a small filling defect. At this time a biliary sphincterotomy was performed over the guidewire and was extended to 1 cm at 11 o'clock position. Following this an 8 mm balloon catheter was passed into the proximal CBD and was gently withdrawn and there was one stool that was extracted. As the scope was being extracted there was significant amount of oozing at the site of sphincterotomy. I injected 1 in 10,000 epinephrine and total of 10 mL was injected following this bleeding has subsided. After this attempt and Endo Clip placement but was not successful. The scope was removed and the forward viewing scope was passed into the stomach and duodenum. At this time difficulty and Endo Clip was placed at the site of bleeding by sphincterotomy site a nd good hemostasis was achieved. Pancreatic duct was not cannulated during the entire procedure. Patient tolerated the procedure well. Impression: Slightly dilated common bile duct measuring 7 mm in size with a small filling defect status post biliary sphincterotomy and, balloon stone extraction and a 5 mm stone was extracted Active oozing at the site of biliary sphincterotomy status post injection epinephrine followed by Endo Clip placement with good hemostasis Pancreatic duct not cannulated. Recommendations: The findings of this examination were discussed with the patient as well as a family. At this time she'll be on a clear liquid diet. We will monitor CBC every 12 hours. Start Protonix 40 mg twice daily.
[2023-01-27] MEDS ORDERED: LIDOCAINE 1% (10MG/ML) FOR IV START INTRADERMA PRN (14:06)
[2023-01-27] MEDS ORDERED: MIDAZOLAM 2 MG/2 ML VIAL IV PRN (14:06)
[2023-01-27] MEDS ORDERED: ONDANSETRON 4 MG/2 ML VIAL IVP ONE (14:06)
[2023-01-27] MEDS ORDERED: DEXAMETHASONE SOD PHOSPHATE 4 MG/ML 1 ML VIAL IV ONE (14:06)
[2023-01-27] MEDS ORDERED: HYDROmorphone 0.5 MG/0.5 ML SYRINGE IVP PRN (14:06)
[2023-01-27] MEDS: ONDANSETRON 4 MG/2 ML VIAL IVP PRN (14:08)
[2023-01-27] MEDS ORDERED: LACTATED RINGERS 1,000 ML IV ONE ×2 (14:15)
[2023-01-27] MEDS: LACTATED RINGERS 1,000 ML IV SCH (14:55)
--- NOTE | 2023-01-27 16:28 | P.PN ---
Subjective Progress Note Date: 01/27/23 CHIEF COMPLAINT: Acute cholecystitis HISTORY OF PRESENT ILLNESS: Patient reports that her pain is better today. She is rating her pain about a 1-2 out of 10. Yesterday after eating she did require morphine. Patient scheduled for ERCP today. Patient seen prior to the ERCP. ERCP results did show slightly dilated common bile duct with small filling defect status post biliary sphincterotomy and balloon stone extraction. There is active oozing at the site of the biliary stricturotomy status post inj ection of epinephrine and Endo Clip placement with good hemostasis noted per GI service. Afebrile. LFTs and total bilirubin trending down PHYSICAL EXAM: VITAL SIGNS: Reviewed GENERAL: Well-developed in no acute distress. HEENT: No sclera icterus. Extraocular movements grossly intact. Moist buccal mucosa. Head is atraumatic, normocephalic. Hears conversational speech. No nasal drainage. NECK: Supple without lymphadenopathy. CHEST: Non-labored respirations and equal bilateral excursions. CARDIOVASCULAR: Palpable 2+ radial pulses. ABDOMEN: Soft. Nondistended. Right upper quadrant tenderness MUSCULOSKELETAL: No clubbing or cyanosis. NEUROLOGIC: No focal or lateralizing signs. Cranial nerves II through XII grossly intact. PSYCH: Appropriate affect. Alert and oriented to person, place and time. SKIN: Well perfused. Good skin turgor. ASSESSMENT: 1. Acute cholecystitis 2. Choledocholithiasis with elevated total bilirubin and liver enzymes PLAN: -Discussed case with GI nurse practitioner. GI service does recommend if patient has any further bleeding that she would require transfer to tertiary care center -Continue monitor hemoglobin -Continue antibiotics -Continue clear liquids -Patient scheduled for Robotic cholecystectomy with Dr. Thakur on [facility] Home Director note has been reviewed by physician. Signing provider agrees with the documented findings, assessment, and plan of care. Please see additional documentation below ERCP advised due to persistent elevation of total bilirubin and choledocholithiasis for 24-48 hours. Total bilirubin acutely decreasing. ERCP appreciated with report of a filling defect identified. Monitor liver enzymes including hemoglobin due to bleeding during ERCP. Anticipated cholecystectomy while patient prior to discharge. Objective - Vital Signs Vital signs: Vital Signs Temp 98.3 F 01/27/23 06:50 Pulse 92 01/27/23 14:39 Resp 16 01/27/23 14:39 BP 142/73 01/27/23 14:39 Pulse Ox 95 01/27/23 14:39 FiO2 Intake & Output 01/26/23 01/27/23 01/27/23 18:59 06:59 18:59 Intake Total 360 0 900 Balance 360 0 900 Weight 92.986 kg Intake: IV 900 Oral 360 0 Other: Voiding Method Toilet # Voids 1 2 - Labs CBC & Chem 7: 01/27/23 17:42 01/27/23 05:26 Labs: Abnormal Lab Results - Last 24 Hours (Table) 01/27/23 Range/Units 05:26 Chloride 110 H (98-107) mmol/L Calcium 8.3 L (8.4-10.2) mg/dL Total Bilirubin 1.9 H (0.2-1.3) mg/dL AST 52 H (14-36) U/L ALT 146 H (4-34) U/L Total Protein 5.7 L (6.3-8.2) g/dL Albumin 3.1 L (3.5-5.0) g/dL Microbiology - Last 24 Hours (Table) 01/24/23 15:15 Blood Culture - Preliminary Blood No Growth after 48 hours 01/24/23 15:00 Blood Culture - Preliminary Blood No Growth after 48 hours
--- NOTE | 2023-01-27 16:53 | FL ---
Intraoperative/procedural fluoroscopic services were provided. Total fluoroscopy time is 52 seconds w ith a total of 7 submitted images to PACS. Please see the operative/procedural note for further detai ls. DAP: [id number]
[2023-01-27 17:58] LABS: HCT 38.4 % (34.0-46.0); HGB 12.9 gm/dL (11.4-16.0); MCHC 33.6 g/dL (31.0-37.0); MCV 83.5 fL (80.0-100.0); Mean Platelet Volume 8.2; Platelet Count 271 k/uL (150-450); RDW 12.4 % (11.5-15.5); WBC 14.1 k/uL (3.8-10.6)
[2023-01-27] MEDS: LORATADINE 10 MG TAB PO SCH (19:49)
[2023-01-28] MEDS: KETOROLAC 15 MG/ML 1 ML VIAL IVP SCH ×4 (00:47→19:56)
[2023-01-28] MEDS: PIPERACILLIN-TAZOBACTAM 3.375 GM in SODIUM CHLORIDE 0.9% 100 ML IVPB SCH ×3 (00:47→16:10)
[2023-01-28 07:55] LABS: Basophils % (A) 0 %; Eosinophils % (A) 0 %; HCT 35.1 % (34.0-46.0); Lymphocytes # (A) 1.4 k/uL (1.0-4.8); Lymphocytes % (A) 14 %; MCH 28.6 pg (25.0-35.0); MCHC 34.3 g/dL (31.0-37.0); MCV 83.4 fL (80.0-100.0); Mean Platelet Volume 8.5; Monocytes # (A) 0.4 k/uL (0-1.0); Monocytes % (A) 4 %; Neutrophils # (A) 7.8 k/uL (1.3-7.7); Neutrophils % (A) 80 %; Platelet Count 275 k/uL (150-450); RBC 4.21 m/uL (3.80-5.40); WBC 9.8 k/uL (3.8-10.6)
[2023-01-28 08:05] LABS: ALT 107 U/L (4-34); AST 32 U/L (14-36); African American GFR (CKD) >90 (>60 ml/min/1.73 sqM); Albumin 3.4 g/dL (3.5-5.0); Albumin/Globulin Ratio 1.4; Alkaline Phosphatase 99 U/L (38-126); Anion Gap 7 mmol/L; Blood Urea Nitrogen 12 mg/dL (7-17); Calcium 8.7 mg/dL (8.4-10.2); Carbon Dioxide 23 mmol/L (22-30); Chloride 110 mmol/L (98-107); Globulin 2.5 g/dL; Glucose 92 mg/dL (74-99); Non-African American GFR(CKD) >90 (>60 ml/min/1.73 sqM); Sodium 140 mmol/L (137-145); Total Bilirubin 1.4 mg/dL (0.2-1.3); Total Protein 5.9 g/dL (6.3-8.2)
[2023-01-28] MEDS: PANTOPRAZOLE 40 MG/10 ML VIAL IVP SCH ×2 (08:41→19:57)
[2023-01-28] MEDS: LACTATED RINGERS 1,000 ML IV SCH (13:48)
--- NOTE | 2023-01-28 15:00 | P.PN ---
Subjective Progress Note Date: 01/28/23 CHIEF COMPLAINT: Acute cholecystitis HISTORY OF PRESENT ILLNESS: Patient has mild abdominal pain right upper quadrant epigastric area. She reports her pain 1 out of 10. She had ERCP yesterday and results did show slightly dilated common bile duct with small filling defect status post biliary sphincterotomy and balloon stone extraction. There is active oozing at the site of the biliary stricturotomy status post injection of epinephrine and Endo Clip placement with good hemostasis noted per GI service. Patient's white count has normalized at 9.8 hemoglobin remained stable at 12 platelets 275 LFTs and total bilirubin continue to trend downwards. Total bili is 1.4 AST has normalized at 32 ALT 107 and alk phos 99 PHYSICAL EXAM: VITAL SIGNS: Reviewed GENERAL: Well-developed in no acute distress. HEENT: No sclera icterus. Extraocular movements grossly intact. Moist buccal mucosa. Head is atraumatic, normocephalic. Hears conversational speech. No nasal drainage. NECK: Supple without lymphadenopathy. CHEST: Non-labored respirations and equal bilateral excursions. CARDIOVASCULAR: Palpable 2+ radial pulses. ABDOMEN: Soft. Nondistended. Right upper quadrant tenderness MUSCULOSKELETAL: No clubbing or cyanosis. NEUROLOGIC: No focal or lateralizing signs. Cranial nerves II through XII grossly intact. PSYCH: Appropriate affect. Alert and oriented to person, place and time. SKIN: Well perfused. Good skin turgor. ASSESSMENT: 1. Acute cholecystitis 2. Choledocholithiasis with elevated total bilirubin and liver enzymes. Status post ERCP with stone extraction. LFTs and bilirubin trending down PLAN: -Patient scheduled for robotic cholecystectomy tomorrow with Dr. Thakur -Keep patient nothing by mouth after midnight -continue antibiotics -Continue supportive care Physician Methods Examiner note has been reviewed by physician. Signing provider agrees with the documented findings, assessment, and plan of care. CHIEF COMPLAINT: Acute cholecystitis with choledocholithiasis HISTORY OF PRESENT ILLNESS: The patient is a 37 year old female who presented with acute cholecystitis and choledocholithiasis. No moderate abdominal pain. She reports anxiety. REVIEW OF ORGAN SYSTEMS: CONSTITUTIONAL: No fevers or chills. No recent weight loss. Has obesity, BMI 33.1 GASTROINTESTINAL: No blood in stools. HEME/LYMPHATIC: Denies any lumps and bumps around the neck. No recent deep venous thrombosis. PHYSICAL EXAM: VITALS: Reviewed CONSTITUTIONAL: Well developed and in no acute distress. EYES: Conjuctivae without sclera icterus. Extraocular movements grossly intact. HEAD, EARS, NOSE, THROAT: Moist buccal mucosa. Head is atraumatic, normocephalic. Hears conversational speech. No nasal drainage. RESPIRATORY: Non-labored respirations and equal bilateral excursions. No gross wheezes. CARDIOVASCULAR: Palpable 2+ radial pulses. ABDOMEN: No peritonitis. MUSCULOSKELETAL: No clubbing cyanosis or edema. SKIN: Warm and well perfused with good skin turgor. NEUROLOGIC: Cranial nerves II through XII grossly intact. No focal or lateralizing signs. PSYCH: Appropriate affect. Alert and oriented to person, place and time. Displays appropriate insight. CLINCAL LABS: Reviewed. WBC normal. Total bilirubin trending downward. Hgb trending downward. ASSESSMENT: 1. Acute cholecystitis due to cystic duct obstruction 2. Elevated LFTs due to choledocholithiasis 3. Obesity due to excess calories, BMI 33.1 4. Acute blood loss anemia following ERCP PLAN: 1. Monitor hemoglobin 2. Benefits and risks of robotic cholecystectomy reviewed. Objective - Vital Signs Vital signs: Vital Signs Temp 97.9 F 01/28/23 06:50 Pulse 84 01/28/23 10:12 Resp 16 01/28/23 10:12 BP 121/70 01/28/23 06:50 Pulse Ox 97 01/28/23 06:50 FiO2 Intake & Output 01/27/23 01/28/23 01/28/23 18:59 06:59 18:59 Intake Total 900 240 Balance 900 240 Weight 92.986 kg Intake: IV 900 Oral 240 Other: Voiding Method Toilet Toilet Toilet # Voids 1 2 - Labs CBC & Chem 7: 01/29/23 05:18 01/29/23 05:18 Labs: Abnormal Lab Results - Last 24 Hours (Table) 01/27/23 01/28/23 01/28/23 Range/Units 17:42 07:31 07:31 WBC 14.1 H (3.8-10.6) k/uL Neutrophils # 7.8 H (1.3-7.7) k/uL Chloride 110 H (98-107) mmol/L Total Bilirubin 1.4 H (0.2-1.3) mg/dL ALT 107 H (4-34) U/L Total Protein 5.9 L (6.3-8.2) g/dL Albumin 3.4 L (3.5-5.0) g/dL Microbiology - Last 24 Hours (Table) 01/24/23 15:15 Blood Culture - Preliminary Blood No Growth after 72 hours 01/24/23 15:00 Blood Culture - Preliminary Blood No Growth after 72 hours
[2023-01-28] MEDS: SCOPOLAMINE 1 MG/72 HR PATCH TRANSDERM SCH (16:11)
--- NOTE | 2023-01-28 17:01 | P.PN ---
Subjective Progress Note Date: 01/28/23 Principal diagnosis: Choledocholithiasis This is a pleasant 37-year-old female who presented to the emergency department Thursday with complaints of severe epigastric pain associated with nausea. Patient states pain actually started on Thursday however the pain ended up going away and she was able to sleep. She states she was fine Thursday however Thursday morning she woke up and had some coffee the patient came back. No previous history of gallbladder disease. No significant medical history. She denies any anticoagulation. Denies any history of peptic ulcer disease and no previous EGD. Patient denied any fevers, chills, or body aches at home. Admitting labs with leukocytosis and mild elevation in total bilirubin at 1.8. Otherwise unremarkable. She had a gallbladder ultrasound showing cholelithiasis multiple mobile gallstones no wall thickening or Cholecystic fluid. Patient was initially seen by general surgery, Dr. Trevino had patient tentatively scheduled for cholecystectomy today however gastroenterology was consulted for possible choledocholithiasis, requesting ERCP. Patient currently denies any abdominal pain, nausea or vomiting. She has been afebrile. She is currently nothing by mouth, states that she does get a little discomfort eating or drinking. And he has a upper trend of LFTs. Today's labs WBC 8.2 hemoglobin 12 platelet count 269,000 pain or 1.0 total bilirubin 3.6 AST 133 ALT 209 alkaline phosphatase 119 01/28/2023: Yesterday patient underwent ERCP with biliary sphincterectomy, balloon stone extraction with injection of epinephrine and Endo Clip placement Patient had a repeat hemoglobin yesterday evening which was stable at 12.9. Repeat hemoglobin this morning 12.0. She denies any abdominal pain, nausea or vomiting. She's been tolerating a clear liquid diet. Total bilirubin 1.4 AST 32 ALT 107 alkaline phosphatase 99 Objective - Vital Signs Vital signs: Vital Signs Temp 97.9 F 01/28/23 06:50 Pulse 82 01/28/23 06:50 Resp 16 01/28/23 06:50 BP 121/70 01/28/23 06:50 Pulse Ox 97 01/28/23 06:50 FiO2 Intake & Output 01/27/23 01/28/23 01/28/23 18:59 06:59 18:59 Intake Total 900 Balance 900 Weight 92.986 kg Intake: IV 900 Other: Voiding Method Toilet Toilet # Voids 1 2 - Exam General appearance: The patient is alert, oriented, appears in no acute distress. HET: Head is normocephalic and atraumatic. Conjunctiva pink. Sclera anicteric. Neck: Supple without lymphadenopathy. Abdomen: Soft, nontender, nondistended with bowel sounds. No guarding or rigidity. Extremities: Normal skin color and turgor. No pedal edema Skin: No rashes, no jaundice Neurological: No focal deficits. Alert and oriented. - Labs CBC & Chem 7: 01/28/23 07:31 01/28/23 07:31 Labs: Abnormal Lab Results - Last 24 Hours (Table) 01/27/23 Range/Units 17:42 WBC 14.1 H (3.8-10.6) k/uL Microbiology - Last 24 Hours (Table) 01/24/23 15:15 Blood Culture - Preliminary Blood No Growth after 72 hours 01/24/23 15:00 Blood Culture - Preliminary Blood No Growth after 72 hours Assessment and Plan (1) Choledocholithiasis Narrative/Plan: The 37-year-old female who presented with acute epigastric pain noted to have cholelithiasis on gallbladder ultrasound, with trending elevation in total bilirubin and LFTs. Patient tentatively scheduled today to undergo cho lecystectomy with Gen. surgery however gastroenterology consulted for possible choledocholithiasis. Patient's LFTs are trending up in with cholestatic pattern with clinical suspicion choledocholithiasis. Patient scheduled for ERCP tomorrow. Procedure discussed with patient in detail. Continue antibiotics. Patient status post ERCP with stone extraction. Patient did have some oozing after stone extraction, she was treated with epinephrine and Endo Clip placement. Current Visit: Yes Status: Acute Code(s): K80.50 - CALCULUS OF BILE DUCT W/O CHOLANGITIS OR CHOLECYST W/O OBST SNOMED Code(s): 517610866 (2) Cholecystitis Narrative/Plan: Patient scheduled with general surgery to undergo robotic cholecystectomy Current Visit: Yes Status: Acute Code(s): K81.9 - CHOLECYSTITIS, UNSPECIFIED SNOMED Code(s): 59526273 Plan: 1. Continue symptomatic supportive care 2. Pain medication as ordered 3. She may have low-fat diet, nothing by mouth after midnight 4. Repeat CBC, CMP tomorrow 5. Patient scheduled for robotic cholecystectomy tomorrow with general surgery Thank you for this consultation, we'll continue to follow. Dr. Raven Hewitt I agree with the dictator's note, documented as a scribe by Kellen Kennedy.
[2023-01-28] MEDS: SODIUM CHLORIDE 0.9% 1,000 ML IV SCH (19:18)
[2023-01-28] MEDS: LORATADINE 10 MG TAB PO SCH (19:57)
[2023-01-29] MEDS: KETOROLAC 15 MG/ML 1 ML VIAL IVP SCH ×4 (00:37→20:34)
[2023-01-29] MEDS: PIPERACILLIN-TAZOBACTAM 3.375 GM in SODIUM CHLORIDE 0.9% 100 ML IVPB SCH ×4 (00:37→23:55)
[2023-01-29] MEDS ORDERED: LORazepam 1 MG TAB PO PRN (05:44)
[2023-01-29] MEDS: PANTOPRAZOLE 40 MG/10 ML VIAL IVP SCH (08:58)
[2023-01-29 09:36] LABS: Basophils # (A) 0.03 X 10*3/uL (0.00-0.10); Basophils % (A) 0.3 %; Eosinophils # (A) 0.13 X 10*3/uL (0.04-0.35); Eosinophils % (A) 1.4 %; HCT 31.7 % (37.2-46.3); HGB 10.5 g/dL (12.0-15.0); Immature Grans, Automated 0.3 %; Lymphocytes # (A) 3.62 X 10*3/uL (0.90-5.00); Lymphocytes % (A) 40.2 %; MCH 28.1 pg (27.0-32.0); MCHC 33.1 g/dL (32.0-37.0); MCV 84.8 fL (80.0-97.0); Mean Platelet Volume 10.9 fL (9.5-12.2); Monocytes # (A) 0.56 X 10*3/uL (0.20-1.00); Monocytes % (A) 6.2 %; NRBC Per 100 WBC 0 /100 WBCS (0.0-0.0); Neutrophils # (A) 4.63 X 10*3/uL (1.80-7.70); Neutrophils % (A) 51.6 %; Platelet Count 260 X 10*3/uL (140-440); RBC 3.74 X 10*6/uL (4.10-5.20); RDW 13.2 % (11.5-14.5)
[2023-01-29 10:34] LABS: African American GFR (CKD) 86.3 (60.0-200.0); Albumin 3.5 g/dL (3.8-4.9); Albumin/Globulin Ratio 1.85 (1.60-3.17); Anion Gap 8.9 mmol/L (10.00-18.00); BUN/Creat Ratio 16.98 Ratio (12.00-20.00); Blood Urea Nitrogen 16.5 mg/dL (9.0-27.0); Calcium 8.4 mg/dL (8.7-10.3); Globulin 1.9 g/dL (1.6-3.3); Non-African American GFR(CKD) 74.4 (60.0-200.0); Potassium 3.8 mmol/L (3.5-5.5); Total Bilirubin 0.9 mg/dL (0.30-1.20); Total Protein 5.3 g/dL (6.2-8.2)
--- NOTE | 2023-01-29 13:29 | P.PN ---
Subjective Progress Note Date: 01/29/23 Principal diagnosis: Choledocholithiasis This is a pleasant 37-year-old female who presented to the emergency department Thursday with complaints of severe epigastric pain associated with nausea. Patient states pain actually started on Thursday however the pain ended up going away and she was able to sleep. She states she was fine Thursday however Thursday morning she woke up and had some coffee the patient came back. No previous history of gallbladder disease. No significant medical history. She denies any anticoagulation. Denies any history of peptic ulcer disease and no previous EGD. Patient denied any fevers, chills, or body aches at home. Admitting labs with leukocytosis and mild elevation in total bilirubin at 1.8. Otherwise unremarkable. She had a gallbladder ultrasound showing cholelithiasis multiple mobile gallstones no wall thickening or Cholecystic fluid. Patient was initially seen by general surgery, Dr. Trevino had patient tentatively scheduled for cholecystectomy today however gastroenterology was consulted for possible choledocholithiasis, requesting ERCP. Patient currently denies any abdominal pain, nausea or vomiting. She has been afebrile. She is currently nothing by mouth, states that she does get a little discomfort eating or drinking. And he has a upper trend of LFTs. Today's labs WBC 8.2 hemoglobin 12 platelet count 269,000 pain or 1.0 total bilirubin 3.6 AST 133 ALT 209 alkaline phosphatase 119 01/28/2023: Yesterday patient underwent ERCP with biliary sphincterectomy, balloon stone extraction with injection of epinephrine and Endo Clip placement Patient had a repeat hemoglobin yesterday evening which was stable at 12.9. Repeat hemoglobin this morning 12.0. She denies any abdominal pain, nausea or vomiting. She's been tolerating a clear liquid diet. Total bilirubin 1.4 AST 32 ALT 107 alkaline phosphatase 99 01/29/2023: Patient seen and examined as a follow-up. She is scheduled today to undergo robotic cholecystectomy. States overall she is feeling well other than this morning she did have a panic attack. She was medicated and feeling better. Does have some right upper quadrant discomfort however much improved since admission. Hemoglobin 10.5. No evidence of bleeding. Denies any nausea or vomiting. Total bilirubin 0.9 AST 44 ALT 105 alkaline phosphatase 94 Objective - Vital Signs Vital signs: Vital Signs Temp 98.3 F 01/29/23 08:00 Pulse 94 01/29/23 08:00 Resp 16 01/29/23 08:00 BP 121/75 01/29/23 08:00 Pulse Ox 96 01/29/23 08:00 FiO2 Intake & Output 01/28/23 01/29/23 01/29/23 18:59 06:59 18:59 Intake Total 960 Balance 960 Intake: Oral 960 Other: Voiding Method Toilet Toilet # Voids 4 2 - Exam General appearance: The patient is alert, oriented, appears in no acute distress. HET: Head is normocephalic and atraumatic. Conjunctiva pink. Sclera anicteric. Neck: Supple without lymphadenopathy. Abdomen: Soft, mild tenderness right upper quadrant. No guarding or rigidity. Extremities: Normal skin color and turgor. No pedal edema Skin: No rashes, no jaundice Neurological: No focal deficits. Alert and oriented. - Labs CBC & Chem 7: 01/29/23 05:18 01/29/23 05:18 Labs: Microbiology - Last 24 Hours (Table) 01/24/23 15:00 Blood Culture - Preliminary Blood No Growth after 96 hours 01/24/23 15:15 Blood Culture - Preliminary Blood No Growth after 96 hours Assessment and Plan (1) Choledocholithiasis Narrative/Plan: The 37-year-old female who presented with acute epigastric pain noted to have cholelithiasis on gallbladder ultrasound, with trending elevation in total bilirubin and LFTs. Patient tentatively scheduled today to undergo chol ecystectomy with Gen. surgery however gastroenterology consulted for possible choledocholithiasis. Patient's LFTs are trending up in with cholestatic pattern with clinical suspicion choledocholithiasis. Patient scheduled for ERCP tomorrow. Procedure discussed with patient in detail. Continue antibiotics. Patient status post ERCP with stone extraction. Patient did have some oozing after stone extraction, she was treated with epinephrine and Endo Clip placement. Current Visit: Yes Status: Acute Code(s): K80.50 - CALCULUS OF BILE DUCT W/O CHOLANGITIS OR CHOLECYST W/O OBST SNOMED Code(s): 737972048 (2) Cholecystitis Narrative/Plan: Patient scheduled with general surgery to undergo robotic cholecystectomy Current Visit: Yes Status: Acute Code(s): K81.9 - CHOLECYSTITIS, UNSPECIFIED SNOMED Code(s): 04227086 Plan: 1. Continue symptomatic supportive care 2. Pain medication as ordered 3. Diet per recommendations from general surgery 4. Patient scheduled for robotic cholecystectomy today with general surgery Thank you for this consultation, we will sign off at this time. Dr. Raven Hewitt I agree with the dictator's note, documented as a scribe by Kellen Kennedy.
[2023-01-29] MEDS ORDERED: LACTATED RINGERS 1,000 ML IV ONE (14:32)
[2023-01-29] MEDS ORDERED: MIDAZOLAM 2 MG/2 ML VIAL IV ONE (14:33)
[2023-01-29] MEDS ORDERED: ONDANSETRON 4 MG/2 ML VIAL IVP ONE (14:33)
--- NOTE | 2023-01-29 14:37 | P.PN ---
Subjective Progress Note Date: 01/29/23 CHIEF COMPLAINT: Acute cholecystitis with choledocholithiasis HISTORY OF PRESENT ILLNESS: The patient is a 37 year old female who presented with acute cholecystitis. She had developed elevated LFTs including features consistent with choledocholithiasis. ERCP was performed with complications of bleeding. Patient has moderate anxiety. She denies moderate abdominal pain today. REVIEW OF ORGAN SYSTEMS: CONSTITUTIONAL: No fevers or chills. No recent weight loss. Has obesity, BMI 33.1 GASTROINTESTINAL: No blood in stools. HEME/LYMPHATIC: Denies any lumps and bumps around the neck. No recent deep venous thrombosis. PHYSICAL EXAM: VITALS: Reviewed CONSTITUTIONAL: Well developed and in no acute distress. EYES: Conjuctivae without sclera icterus. Extraocular movements grossly intact. HEAD, EARS, NOSE, THROAT: Moist buccal mucosa. Head is atraumatic, normocephalic. Hears conversational speech. No nasal drainage. RESPIRATORY: Non-labored respirations and equal bilateral excursions. No gross wheezes. CARDIOVASCULAR: Palpable 2+ radial pulses. ABDOMEN: No peritonitis. Right upper quadrant pain. MUSCULOSKELETAL: No clubbing cyanosis or edema. SKIN: Warm and well perfused with good skin turgor. NEUROLOGIC: Cranial nerves II through XII grossly intact. No focal or lateralizing signs. PSYCH: Appropriate affect. Alert and oriented to person, place and time. Displays appropriate insight. CLINCAL LABS: Reviewed. WBC normal. Total bilirubin 3.6, down to normal. LFTs elevated. ASSESSMENT: 1. Acute cholecystitis due to cystic duct obstruction 2. Elevated LFTs due to choledocholithiasis 3. Obesity due to excess calories, BMI 33.1 4. Acute blood loss anemia following ERCP PLAN: 1. Recommend cholecystectomy. Robotic-assisted approach described. 2. Patient elevated risk due to pre-existing ERCP and edema along the cystic duct structures. 3. Discharge in 24-48 hours pending clinical course Objective - Vital Signs Vital signs: Vital Signs Temp 97.8 F 01/29/23 14:28 Pulse 78 01/29/23 14:28 Resp 16 01/29/23 14:28 BP 121/73 01/29/23 14:28 Pulse Ox 95 01/29/23 14:28 FiO2 Intake & Output 04/19/23 04/20/23 04/20/23 18:59 06:59 18:59 Intake Total 960 Balance 960 Intake: Oral 960 Other: Voiding Method Toilet Toilet # Voids 4 2 - Labs CBC & Chem 7: 01/29/23 05:18 01/29/23 05:18 Labs: Abnormal Lab Results - Last 24 Hours (Table) 01/29/23 01/29/23 Range/Units 05:18 05:18 RBC 3.74 L (4.10-5.20) X 10*6/uL Hgb 10.5 L (12.0-15.0) g/dL Hct 31.7 L (37.2-46.3) % Chloride 112 H (96-109) mmol/L Anion Gap 8.90 L (10.00-18.00) mmol/L Calcium 8.4 L (8.7-10.3) mg/dL AST 44 H (13-35) U/L ALT 105 H (8-44) U/L Total Protein 5.3 L (6.2-8.2) g/dL Albumin 3.5 L (3.8-4.9) g/dL Microbiology - Last 24 Hours (Table) 01/24/23 15:00 Blood Culture - Preliminary Blood No Growth after 96 hours 01/24/23 15:15 Blood Culture - Preliminary Blood No Growth after 96 hours
[2023-01-29] MEDS ORDERED: BUPIVACAIN-EPI 0.25%-1:200,000 30 ML VIAL SQ ONE ×2 (14:40→15:26)
[2023-01-29] MEDS ORDERED: INDOCYANINE GREEN 25 MG VIAL IV STA (14:48)
[2023-01-29] MEDS: HEPARIN SODIUM,PORCINE/PF 5,000 UNIT/0.5 ML SYRINGE SQ SCH ×2 (14:51→21:25)
[2023-01-29] MEDS ORDERED: ROCURONIUM 10 MG/ML (5 ML VIAL) IV ONE (14:58)
[2023-01-29] MEDS ORDERED: ESMOLOL 100 MG/10 ML VIAL ONE (14:58)
[2023-01-29] MEDS ORDERED: NEOSTIGMINE 1 MG/ML 10 ML VIAL ONE (14:58)
[2023-01-29] MEDS ORDERED: PROPOFOL 10 MG/ML 20 ML VIAL IV ONE (14:58)
[2023-01-29] MEDS ORDERED: HYDROmorphone (PF) 1 MG/ML ONE (14:58)
[2023-01-29] MEDS ORDERED: GLYCOPYRROLATE 0.2 MG/ML 2 ML VIAL ONE (14:58)
[2023-01-29] MEDS ORDERED: SUCCINYLCHOLINE CHLORIDE 200 MG/10 ML VIAL IV ONE (14:58)
[2023-01-29] MEDS ORDERED: INDOCYANINE GREEN 25 MG VIAL IV ONE (14:58)
[2023-01-29] MEDS ORDERED: LIDOCAINE 2% INJ 20 MG/ML (2 ML VIAL) ONE (14:58)
[2023-01-29] MEDS ORDERED: MIDAZOLAM 2 MG/2 ML VIAL ONE (14:58)
[2023-01-29] MEDS ORDERED: fentaNYL (PF) 50 MCG/ML 2 ML AMP ONE (14:58)
[2023-01-29] MEDS: SODIUM CHLORIDE 0.9% 1,000 ML IV SCH ×2 (17:34→20:40)
[2023-01-29] MEDS: LACTATED RINGERS 1,000 ML IV SCH (17:35)
[2023-01-29] MEDS: ONDANSETRON 4 MG/2 ML VIAL IVP PRN (17:59)
[2023-01-29] MEDS ORDERED: ACETAMINOPHEN TAB 325 MG TAB PO PRN (21:04)
[2023-01-29] MEDS: LORATADINE 10 MG TAB PO SCH (21:25)
[2023-01-29 22:35] VITALS: RESP 16
--- NOTE | 2023-01-29 23:13 | P.OP ---
Date of Procedure: 01/29/23 Description of Procedure: SURGEON: PRINCE SIMON MD PREOPERATIVE DIAGNOSES: 1. Acute cholecystitis due to cystic duct obstruction and choledocholithiasis 2. Obesity sutures excess calories, BMI 33.1. POSTOPERATIVE DIAGNOSES: 1. Acute cholecystitis due to cystic duct obstruction and choledocholithiasis 2. Obesity sutures excess calories, BMI 33.1. 3. Thyromegaly heart disease OPERATION: Robotic-assisted da Rhoda Xi laparoscopic cholecystectomy, multiport with FIREFLY ESTIMATED BLOOD LOSS: 5mL. SPECIMENS REMOVED: Gallbladder. COMPLICATIONS: None. OPERATIVE FINDINGS: 1. Acute cholecystitis 2. Indocyanine green drain confirms acute cholecystitis with lack of contrast in gallbladder 3. Common bile duct dilated with dilated cystic duct INDICATIONS: The patient is a 37 year-old female who presents with epigastric right upper quadrant pain, symptomatic gallstones. She subsequently developed choledocholithiasis requiring ERCP. Antibiotic management including pain management was prescribed to manage her cholecystitis. Surgical intervention with cholecystectomy was described. Robotic assisted laparoscopic approach was described. Benefits and risks of the procedure including but not limited to bleeding, infection, injury to the biliary tree was reviewed. Informed consent was obtained. DESCRIPTION OF PROCEDURE: Patient was brought to the operating room, placed in supine position. After general induction, the abdomen had been prepped and draped in standard sterile fashion. The robotic da Rhoda XI system was primed. After a timeout protocol was performed, the patient had been prepped and draped in standard sterile fashion. The patient was injected with indocyanine green. A 5 mm 0 degrees laparoscopic trocar entry was performed along the left upper quadrant. The abdomen insufflated to 15 mmHg pressure which was tolerated well. Diagnostic laparoscopy demonstrated no injury to bowel viscera or mesentery. The liver surface was remarkable for hepatomegaly and fatty liver disease. Next, two 8 mm robotic ports were placed along the right upper abdomen. The camera 8- mm port was maintained along the epigastrium. Another 8 mm port was placed along the left upper abdominal wall after exchanging the 5 mm port. Please note that the ports were placed at least 10 to 15 cm away from the target anatomy of the gallbladder. The robot was docked along the left lateral abdomen. The patient was repositioned in reverse Trendelenburg position with the right side up. Using a grasper for arm 3, a grasper for arm 4, including hook cautery for arm 1, the robotic system was docked and primed as described. Instruments were interchanged by the wet process miller head assistant including hook cautery, Bovie cautery and clip appliers. I had sat at the console. The gallbladder was reflected towards the dome of the liver. Initial dissection was performed on the gallbladder infundibulum using indocyanine green to illuminate the cystic duct and common bile duct. Due to moderate distention of the infundibulum, dome down technique was performed removing the gallbladder from the hepatic fossa starting from the fundus towards the infundibulum. The common bile duct and cystic duct were dilated and edematous. Dissection occurred at cystic lymph node. Using a sponge, the liver was reflected towards the diaphragm and starting at the gallbladder fundus, hook cautery was used to find the avascular plane between the liver and the gallbladder. As the gallbladder was dissected from the hepatic fossa, hemostasis was checked using vessel sealer along the posterior gallbladder. Next, indocyanine green was used to confirm the common bile duct as well as cystic duct. The entire gallbladder was without contrast consistent with acute cholecystitis. The infundibulum was retracted laterally to expose the cystic duct away from the common bile duct. The cystic duct was dissected free from its surrounding tissue. FIREFLY was used to identify the cystic structures. A critical view of safety was obtained. Large PLASTIC clips were used throughout the entire case. Using a clip generator assembler, 2 clips placed at the junction of the infundibulum and cystic duct. The cystic duct was divided using hook cautery. Next, the cystic artery was divided using cautery with bleeding control. Electro-Bovie cautery and vessel sealer was used to remove the gallbladder without decompression. Hemostasis was checked and found to be adequate. The robot was undocked. I re-scrubbed into the case. A 10 mm Endo Catch bag was used to remove the gallbladder in total via the left upper quadrant incision after widening the incision. The specimen was removed from the abdominal cavity. All pneumoperitoneum instruments were evacuated from the abdominal cavity. The incisions were cleansed using dilute hydrogen peroxide. The incisions were reapproximated using 4-0 Monocryl in an interrupted subcuticular fashion. Please note along the trocar sites, local anesthetic was placed as a field block prior to insertion of all instruments. Liquid glue was applied to the skin. At the end of the procedure needle, sponge, and instrument count had been verified correct by the director surgical. The patient was transferred to postanesthesia care unit in stable condition. Intraoperative findings were discussed with the patient's over the telephone.
[2023-01-29] MEDS: ACETAMINOPHEN TAB 500 MG TAB PO SCH (23:47)
[2023-01-29] MEDS: ONDANSETRON 4 MG/2 ML VIAL IVP SCH (23:56)
[2023-01-30] MEDS: KETOROLAC 15 MG/ML 1 ML VIAL IVP SCH ×2 (02:06→09:00)
[2023-01-30] MEDS: ACETAMINOPHEN TAB 500 MG TAB PO SCH ×2 (06:03→12:06)
[2023-01-30] MEDS: SODIUM CHLORIDE 0.9% 1,000 ML IV SCH (06:05)
[2023-01-30] MEDS: ONDANSETRON 4 MG/2 ML VIAL IVP SCH ×2 (06:05→12:03)
[2023-01-30 07:56] VITALS: BP 133/73; PULSE 79; TEMP 98.2
[2023-01-30 08:39] LABS: Basophils # (A) 0.03 X 10*3/uL (0.00-0.10); Basophils % (A) 0.4 %; Eosinophils # (A) 0.14 X 10*3/uL (0.04-0.35); Eosinophils % (A) 1.9 %; HCT 29.6 % (37.2-46.3); HGB 9.8 g/dL (12.0-15.0); Immature Grans, Automated 0.3 %; Lymphocytes % (A) 37.8 %; MCH 28.1 pg (27.0-32.0); MCHC 33.1 g/dL (32.0-37.0); MCV 84.8 fL (80.0-97.0); Monocytes # (A) 0.63 X 10*3/uL (0.20-1.00); Monocytes % (A) 8.5 %; NRBC Per 100 WBC 0 /100 WBCS (0.0-0.0); Neutrophils # (A) 3.78 X 10*3/uL (1.80-7.70); Neutrophils % (A) 51.1 %; Platelet Count 234 X 10*3/uL (140-440); RBC 3.49 X 10*6/uL (4.10-5.20); RDW 13.2 % (11.5-14.5)
[2023-01-30 08:55] LABS: African American GFR (CKD) 94.7 (60.0-200.0); Albumin 3.3 g/dL (3.8-4.9); Albumin/Globulin Ratio 1.74 (1.60-3.17); Anion Gap 8.8 mmol/L (10.00-18.00); BUN/Creat Ratio 11.11 Ratio (12.00-20.00); Calcium 8.5 mg/dL (8.7-10.3); Carbon Dioxide 23.2 mmol/L (20.0-27.5); Globulin 1.9 g/dL (1.6-3.3); Non-African American GFR(CKD) 81.7 (60.0-200.0); Potassium 3.9 mmol/L (3.5-5.5); Total Bilirubin 1.3 mg/dL (0.30-1.20); Total Protein 5.2 g/dL (6.2-8.2)
[2023-01-30] MEDS ORDERED: PANTOPRAZOLE 40 MG/10 ML VIAL IVP SCH (09:00)
[2023-01-30] MEDS: HEPARIN SODIUM,PORCINE/PF 5,000 UNIT/0.5 ML SYRINGE SQ SCH (09:00)
[2023-01-30] MEDS: PIPERACILLIN-TAZOBACTAM 3.375 GM in SODIUM CHLORIDE 0.9% 100 ML IVPB SCH (09:01)
[2023-01-30] MEDS: SIMETHICONE 40 MG/0.6 ML DROPS 2,000 MG/30 ML BOTTLE PO SCH ×2 (09:02→12:03)
--- NOTE | 2023-01-30 09:59 | P.PN ---
Subjective Progress Note Date: 01/30/23 Principal diagnosis: Choledocholithiasis This is a pleasant 37-year-old female who presented to the emergency department Thursday with complaints of severe epigastric pain associated with nausea. Patient states pain actually started on Thursday however the pain ended up going away and she was able to sleep. She states she was fine Thursday however Thursday morning she woke up and had some coffee the patient came back. No previous history of gallbladder disease. No significant medical history. She denies any anticoagulation. Denies any history of peptic ulcer disease and no previous EGD. Patient denied any fevers, chills, or body aches at home. Admitting labs with leukocytosis and mild elevation in total bilirubin at 1.8. Otherwise unremarkable. She had a gallbladder ultrasound showing cholelithiasis multiple mobile gallstones no wall thickening or Cholecystic fluid. Patient was initially seen by general surgery, Dr. Trevino had patient tentatively scheduled for cholecystectomy today however gastroenterology was consulted for possible choledocholithiasis, requesting ERCP. Patient currently denies any abdominal pain, nausea or vomiting. She has been afebrile. She is currently nothing by mouth, states that she does get a little discomfort eating or drinking. And he has a upper trend of LFTs. Today's labs WBC 8.2 hemoglobin 12 platelet count 269,000 pain or 1.0 total bilirubin 3.6 AST 133 ALT 209 alkaline phosphatase 119 01/28/2023: Yesterday patient underwent ERCP with biliary sphincterectomy, balloon stone extraction with injection of epinephrine and Endo Clip placement Patient had a repeat hemoglobin yesterday evening which was stable at 12.9. Repeat hemoglobin this morning 12.0. She denies any abdominal pain, nausea or vomiting. She's been tolerating a clear liquid diet. Total bilirubin 1.4 AST 32 ALT 107 alkaline phosphatase 99 01/29/2023: Patient seen and examined as a follow-up. She is scheduled today to undergo robotic cholecystectomy. States overall she is feeling well other than this morning she did have a panic attack. She was medicated and feeling better. Does have some right upper quadrant discomfort however much improved since admission. Hemoglobin 10.5. No evidence of bleeding. Denies any nausea or vomiting. Total bilirubin 0.9 AST 44 ALT 105 alkaline phosphatase 94 01/30/2023: Patient was seen and examined today as a follow-up. Yesterday she underwent robotic cholecystectomy. She's been up and going to the bathroom. States she had a bowel movement yesterday. No acute changes through the night. She has been afebrile. I did state she has bruising on her abdomen. Objective - Vital Signs Vital signs: Vital Signs Temp 98.1 F 01/30/23 02:10 Pulse 78 01/30/23 02:10 Resp 16 01/30/23 02:10 BP 120/70 01/30/23 02:10 Pulse Ox 95 01/30/23 02:10 FiO2 Intake & Output 01/29/23 01/29/23 01/30/23 06:59 18:59 06:59 Intake Total 1060 Output Total 5 Balance 1055 Weight 92.986 kg Intake: IV 700 Oral 360 Output: Estimated Blood Loss 5 Other: Voiding Method Toilet Toilet # Voids 2 - Exam General appearance: The patient is alert, oriented, appears in no acute distress. HET: Head is normocephalic and atraumatic. Conjunctiva pink. Sclera anicteric. Neck: Supple without lymphadenopathy. Abdomen: Soft, incisions well approximated, abdominal bruising. Extremities: Normal skin color and turgor. No pedal edema Skin: No rashes, no jaundice Neurological: No focal deficits. Alert and oriented. - Labs CBC & Chem 7: 01/30/23 05:52 01/30/23 05:52 Labs: Abnormal Lab Results - Last 24 Hours (Table) 01/29/23 01/29/23 Range/Units 05:18 05:18 RBC 3.74 L (4.10-5.20) X 10*6/uL Hgb 10.5 L (12.0-15.0) g/dL Hct 31.7 L (37.2-46.3) % Chloride 112 H (96-109) mmol/L Anion Gap 8.90 L (10.00-18.00) mmol/L Calcium 8.4 L (8.7-10.3) mg/dL AST 44 H (13-35) U/L ALT 105 H (8-44) U/L Total Protein 5.3 L (6.2-8.2) g/dL Albumin 3.5 L (3.8-4.9) g/dL Microbiology - Last 24 Hours (Table) 01/24/23 15:15 Blood Culture - Preliminary Blood No Growth after 120 hours 01/24/23 15:00 Blood Culture - Preliminary Blood No Growth after 120 hours Assessment and Plan (1) Choledocholithiasis Narrative/Plan: The 37-year-old female who presented with acute epigastric pain noted to have cholelithiasis on gallbladder ultrasound, with trending elevation in total naila irubin and LFTs. Patient tentatively scheduled today to undergo cholecystectomy with Gen. surgery however gastroenterology consulted for possible choledocholithiasis. Patient's LFTs are trending up in with cholestatic pattern with clinical suspicion choledocholithiasis. Patient scheduled for ERCP tomorrow. Procedure discussed with patient in detail. Continue antibiotics. Patient status post ERCP with stone extraction. Patient did have some oozing after stone extraction, she was treated with epinephrine and Endo Clip placement. Current Visit: Yes Status: Acute Code(s): K80.50 - CALCULUS OF BILE DUCT W/O CHOLANGITIS OR CHOLECYST W/O OBST SNOMED Code(s): 949785744 (2) Cholecystitis Narrative/Plan: Patient scheduled with general surgery to undergo robotic cholecystectomy Current Visit: Yes Status: Acute Code(s): K81.9 - CHOLECYSTITIS, UNSPECIFIED SNOMED Code(s): 10364196 Plan: 1. Continue symptomatic and supportive care 2. Pain medication as ordered 3. Diet per recommendations from general surgery 4. Patient is cleared from gastroenterology for discharge once cleared by general surgery. Thank you for this consultation, we will sign off at this time. Dr. Raven Hewitt I agree with the dictator's note, documented as a scribe by Kellen Kennedy.
--- NOTE | 2023-01-30 12:26 | P.PN ---
Subjective Progress Note Date: 01/30/23 CHIEF COMPLAINT: Acute cholecystitis with choledocholithiasis HISTORY OF PRESENT ILLNESS: The patient is a 37 year old female who presented with acute cholecystitis and choledocholithiasis. She status post robotic cholecystectomy. She feels well. REVIEW OF ORGAN SYSTEMS: CONSTITUTIONAL: No fevers or chills. No recent weight loss. Has obesity, BMI 33.1 GASTROINTESTINAL: No blood in stools. HEME/LYMPHATIC: Denies any lumps and bumps around the neck. No recent deep venous thrombosis. PHYSICAL EXAM: VITALS: Reviewed CONSTITUTIONAL: Well developed and in no acute distress. EYES: Conjuctivae without sclera icterus. Extraocular movements grossly intact. HEAD, EARS, NOSE, THROAT: Moist buccal mucosa. Head is atraumatic, normocephalic. Hears conversational speech. No nasal drainage. RESPIRATORY: Non-labored respirations and equal bilateral excursions. No gross wheezes. CARDIOVASCULAR: Palpable 2+ radial pulses. ABDOMEN: Minimal incisional pain. No peritonitis. MUSCULOSKELETAL: No clubbing cyanosis or edema. SKIN: Warm and well perfused with good skin turgor. NEUROLOGIC: Cranial nerves II through XII grossly intact. No focal or lateralizing signs. PSYCH: Appropriate affect. Alert and oriented to person, place and time. Displays appropriate insight. CLINCAL LABS: Reviewed. WBC normal. Total bilirubin 3.6, down to normal, no elevated 1.3. LFTs elevated. ASSESSMENT: 1. Acute cholecystitis due to cystic duct obstruction 2. Elevated LFTs due to choledocholithiasis 3. Obesity due to excess calories, BMI 33.1 4. Acute blood loss anemia following ERCP PLAN: 1. Repeat LFTs for downward trend following surgery. 2. Discharge pending repeat labs for history of choledocholithiasis. 3. Follow-up 1 week postop Objective - Vital Signs Vital signs: Vital Signs Temp 98.2 F 01/30/23 07:55 Pulse 79 01/30/23 08:00 Resp 16 01/30/23 08:00 BP 133/73 01/30/23 07:55 Pulse Ox 96 01/30/23 07:55 FiO2 Intake & Output 01/29/23 01/30/23 01/30/23 18:59 06:59 18:59 Intake Total 1060 500 236 Output Total 5 Balance 1055 500 236 Weight 92.986 kg Intake: IV 700 Oral 360 500 236 Output: Estimated Blood Loss 5 Other: Voiding Method Toilet Toilet # Voids 2 - Labs CBC & Chem 7: 01/30/23 05:52 01/30/23 05:52 Labs: Abnormal Lab Results - Last 24 Hours (Table) 01/30/23 01/30/23 Range/Units 05:52 05:52 RBC 3.49 L (4.10-5.20) X 10*6/uL Hgb 9.8 L (12.0-15.0) g/dL Hct 29.6 L (37.2-46.3) % Chloride 111 H (96-109) mmol/L Anion Gap 8.80 L (10.00-18.00) mmol/L BUN/Creatinine Ratio 11.11 L (12.00-20.00) Ratio Calcium 8.5 L (8.7-10.3) mg/dL Total Bilirubin 1.30 H (0.30-1.20) mg/dL AST 42 H (13-35) U/L ALT 97 H (8-44) U/L Total Protein 5.2 L (6.2-8.2) g/dL Albumin 3.3 L (3.8-4.9) g/dL Microbiology - Last 24 Hours (Table) 01/24/23 15:15 Blood Culture - Preliminary Blood No Growth after 120 hours 01/24/23 15:00 Blood Culture - Preliminary Blood No Growth after 120 hours
[2023-01-30 12:31] LABS: ALT 118 U/L (4-34); AST 65 U/L (14-36); African American GFR (CKD) >90 (>60 ml/min/1.73 sqM); Albumin 3.5 g/dL (3.5-5.0); Albumin/Globulin Ratio 1.4; Alkaline Phosphatase 91 U/L (38-126); Anion Gap 6 mmol/L; Blood Urea Nitrogen 10 mg/dL (7-17); Calcium 8.4 mg/dL (8.4-10.2); Carbon Dioxide 27 mmol/L (22-30); Chloride 107 mmol/L (98-107); Globulin 2.5 g/dL; Glucose 91 mg/dL (74-99); Non-African American GFR(CKD) >90 (>60 ml/min/1.73 sqM); Sodium 140 mmol/L (137-145); Total Bilirubin 1.7 mg/dL (0.2-1.3)
--- NOTE | 2023-01-30 13:50 | P.DS ---
Providers Date of admission: 01/26/23 14:59 Expected date of discharge: 01/30/23 Attending physician: Lupe Thakur Consults: 01/25/23 21:42 Consult Physician Routine Consulting Provider: Swati Hewitt Consult Reason/Comments: ERCP for choledocholithiasis Do you want consulting provider notified?: Yes, Notify in am Primary care physician: Maureen Michel DO Hospital Course: Discharge diagnosis 1. Acute cholecystitis due to cystic duct obstruction 2. Elevated LFTs due to choledocholithiasis 3. Obesity due to excess calories, BMI 33.1 4. Acute blood loss anemia following ERCP Hospital course The patient is a 37 year-old female who presents with epigastric right upper quadrant pain, symptomatic gallstones. She subsequently developed choledocholithiasis requiring ERCP. Patient is status post Robotic-assisted da Rhoda Xi laparoscopic cholecystectomy. Patient reports her pain is controlled. She is tolerating diet. She's afebrile. She's up and ambulating she is having flatus. Denies any difficulty urinating. Her LFTs and total bilirubin did trend slightly upward. Case was discussed with GI service. They have cleared patient for discharge. Patient is stable for discharge. Physician [employer] note has been reviewed by physician. Signing provider agrees with the documented findings, assessment, and plan of care. Additional documentation below Patient presented with acute cholecystitis. LFTs elevated demonstrating choledocholithiasis. She underwent ERCP. Then cholecystectomy was performed. LFTs were monitored. Prior to discharge, LFTs were still elevated. Clearance from gastroenterology team was obtained prior to discharge. Patient Condition at Discharge: Stable Plan - Discharge Summary Discharge Rx Participant: Yes New Discharge Prescriptions: New Ibuprofen [Motrin] 600 mg PO Q8HR PRN #30 tab PRN Reason: Pain Acetaminophen Tab [Tylenol] 1,000 mg PO Q6HR PRN #30 tablet PRN Reason: Pain Simethicone 40 mg/0.6 ml Drops [Mylicon Drops] 40 mg PO PCHS PRN #30 ml PRN Reason: gas Continue Loratadine [Claritin] 20 mg PO HS Discharge Medication List Loratadine [Claritin] 20 mg PO HS 01/24/23 [History] Acetaminophen Tab [Tylenol] 1,000 mg PO Q6HR PRN #30 tablet 01/30/23 [Rx] Ibuprofen [Motrin] 600 mg PO Q8HR PRN #30 tab 01/30/23 [Rx] Simethicone 40 mg/0.6 ml Drops [Mylicon Drops] 40 mg PO PCHS PRN #30 ml 01/30/23 [Rx] Follow up Appointment(s)/Referral(s): Lupe Thakur MD [STAFF PHYSICIAN] - 02/03/23 8:30 am (TELE[facility]ALTH - DR THAKUR WILL CALL YOU) Nonstaff,Physician [REFERRING] - 1-2 days Patient Instructions/Handouts: *Surgery [facility] - Managing Your Pain After Surgery Without Opioids, Laparoscopic Cholecystectomy (DC) Activity/Diet/Wound Care/Special Instructions: TELEHEALTH - calls you, please confirm your telephone number Recommend low-fat diet for the next 2 days. No lifting over 10 pounds in 2 weeks until February 12. May shower. No bath tub soaks for two weeks until February 12. Use ice along incisions for today to prevent swelling. Diet as tolerated. Use Tylenol, simethicone and ibuprofen or Aleve scheduled for the next 24-48 hours for best pain relief. Discharge Disposition: HOME SELF-CARE
== END 2023-01-30 14:35 | disposition home or self-care (01) | DRG 418 ==
LOC: EC 12:11 → 6NMEDSUR 15:17 → OBSVTOIN 01-26 14:59
PROVIDERS: ADMIT Surgery Plastic and Reconstructive Surgery; ATTEND Surgery Plastic and Reconstructive Surgery
PROC: 0FC98ZZ Extirpation of Matter from Common Bile Duct, Via Natural or Artificial Opening Endoscopic (ICD-10-PCS; principal; 2023-01-27 13:10)
PROC: 0FT44ZZ Resection of Gallbladder, Percutaneous Endoscopic Approach (ICD-10-PCS; 2023-01-29)
DX: K80.63 Calculus of gallbladder and bile duct with acute cholecystitis with obstruction (principal); D62 Acute posthemorrhagic anemia; N39.0 Urinary tract infection, site not specified; E66.09 Other obesity due to excess calories; F41.0 Panic disorder [episodic paroxysmal anxiety]; Z82.49 Family history of ischemic heart disease and other diseases of the circulatory system; Z68.33 Body mass index [BMI] 33.0-33.9, adult
CPT/HCPCS: 36415; 43260; 43262; 43277; 74330; 76705; 80053; 81001; 81025; 82150; 83605; 83690; 84484; 85025; 85027; 85610; 87040; 88304; 93005; 96361; 96374; 96375; 99285